=== PATIENT | male | born 1995 | race Caucasian/White ===

== ENCOUNTER 2018-02-27 10:03 | Outpatient (CLI) | payer MEDICAID, SELFPAY ==
--- NOTE | 2018-02-27 09:25 | DI.RAD_ITS ---
SYMPTOMS/DIAGNOSIS: COUGH, R05 CHEST X-RAY, PA AND LATERAL: Comparison is 10/07/16. The heart is normal in size. The lungs are clear. The mediastinal structures and pleura appear intact. IMPRESSION: Normal chest.
== END 2018-02-27 10:23 ==
PROVIDERS: PCP Family Medicine; Visit Provider Internal Medicine
DX: R05 Cough (principal)
CPT/HCPCS: 71046

== ENCOUNTER 2018-06-14 15:13 | Outpatient (CLI) | payer MEDICAID, SELFPAY ==
[2018-06-14 16:18] LABS: ALT 20 U/L (12-78); AST 15 U/L (15-37); Albumin 4.1 g/dL (3.4-5.0); Alkaline Phosphatase 111 U/L (46-116); Anion Gap 12.3 mmol/L (3-11); BUN 9 mg/dL (7-18); Bilirubin, Total 0.2 mg/dL (0.2-1.0); CO2 27.7 mmol/L (21.0-32.0); CREATININE 0.98 mg/dL (0.70-1.30); Calcium 10.5 mg/dL (8.5-10.1); Chloride 102 mmol/L (98-107); Glucose 109 mg/dL (70-100); Potassium 4.2 mmol/L (3.5-5.1); Sodium 142 mmol/L (136-145); Total Protein 7.6 g/dL (6.4-8.2)
== END 2018-06-14 15:33 ==
PROVIDERS: PCP Nurse Practitioner Family; Visit Provider Family Medicine
DX: K92.0 Hematemesis (principal)
CPT/HCPCS: 36415; 80053

== ENCOUNTER 2018-09-17 17:14 | Emergency (ER) | payer MEDICAID, SELFPAY ==
[2018-09-17 17:19] VITALS: BP 140/90; PULSE 90; RESP 16; TEMP 36.4; O2SAT 99
--- NOTE | 2018-09-17 17:52 | W.ED.GENAD ---
Discharge Plan Disposition Patient Disposition: HOME Condition: Good Discharge Details Chief Complaint: RespSymp Clinical Impression: Acute bronchitis, Sinus congestion Primary Care Provider: Unknown,Unknown ED Provider: Adriel Oakley Home Meds and New Rx's Prescriptions: New albuterol sulfate 90 mcg/actuation HFA aerosol inhaler 2 puff IH Q6H PRN (Reason: shortness of breath or wheezing) Qty: 8 RF: 0 fluticasone propionate 50 mcg/actuation spray,suspension 2 spray PEÑA DAILY Qty: 9.9 RF: 0 loratadine 10 mg capsule 10 mg PO DAILY Qty: 10 RF: 0 sodium chloride [Saline Mist] 0.65 % aerosol,spray 1 spray PEÑA Q1-4H PRN (Reason: nasal congestion) Qty: 30 RF: 0 No Action albuterol sulfate [Ventolin HFA] 90 mcg/actuation HFA aerosol inhaler 2 puff IH QID Qty: 18 RF: 1 baclofen 10 mg tablet 10 mg PO TID PRN (Reason: muscle spasm) Qty: 90 RF: 1 quetiapine [Seroquel] 100 mg tablet 100 mg PO 2@HS Qty: 60 RF: 3 clonazepam [Klonopin] 2 mg tablet 2 mg PO BID Qty: 60 RF: 0 dextroamphetamine-amphetamine [Adderall] 10 mg tablet 10 mg PO DAILY MDD 1 Qty: 30 RF: 0 dextroamphetamine-amphetamine 20 mg capsule,extended release 24hr 20 mg PO DAILY MDD 1 Qty: 30 RF: 0 dicyclomine 10 mg capsule 10 mg PO TID Qty: 30 RF: 2 Discharge Instructions Instructions: Sinusitis (ED), Acute Bronchitis (ED) Additional Instructions: Please stop smoking. Please take the nasal spray as directed. Please use a nasal rinse and inhaler as directed. If you notice any worsening of your symptoms, or any new symptoms such as vomiting, diarrhea, fever, chills, shortness of breath, chest pain, numbness, weakness, or fainting , please return immediately to the emergency department for reevaluation. Please follow up with your primary care provider as soon as possible for reassessment and reevaluation. As always, it was a pleasure participating in your medical care today. Discharge Data Discharge Date/Time-TO BE ENTERED AT DEPARTURE: 09/17/18 18:15 Medical Decision Making This is a pleasant 22-year-old male who presents for 4 days of congestion as well as a mild cough. He has no associated fever. Lung sounds are notably clear, vital signs are notably reassuring with no hypoxemia, tachypnea, tachycardia or fever. Portable limited bedside ultrasound demonstrates no evidence of B-lines, no evidence of significant infiltrate. The patient does have notable frontal nasal congestion. I feel signs and symptoms are clinically consistent with mild URI and sinusitis. No clinical evidence of severe pneumonia. We will start the patient on Flonase, sinus rinses, recommend close follow-up. We will also give the patient an inhaler with spacer here. I have extensively reviewed the treatment plan and discharge instructions with the patient. I have addressed all patient concerns at this time. The patient was made aware of what symptoms to monitor for that would warrant a return to the emergency department. Discussed the plan with the patient, they demonstrate verbal understanding and agreement with our assessment and plan at this time. HPI General Date/Time Provider Initiated Documentation: 09/17/18 17:27. HPI Narrative: This is a 22-year-old male with no significant past medical history except for notable tobacco and marijuana use, who presents today for evaluation of cough for the last 4 days. He has mild associated frontal congestion as well with a runny nose. He denies any significant sore throat. He denies any hemoptysis. Cough is productive with yellow and green sputum. He denies any fever or chills, energy level is normal. He denies any vomiting, but does admit to occasional loose stool. He denies any recent pneumonia but does admit to multiple other sick contacts. He has no other complaints, he denies any other modifying factors. Of note he has been using his girlfriends albuterol and this has been improving his symptoms. He has not been on any antibiotics recently. Related Data Home Medications Medication Instructions Recorded Confirmed dicyclomine 10 mg capsule 10 mg PO TID #30 cap 02/01/18 09/17/18 albuterol sulfate HFA 90 2 puff IH QID #18 gm 02/27/18 09/17/18 mcg/actuation aerosol inhaler baclofen 10 mg tablet 10 mg PO TID PRN #90 tab 06/11/18 09/17/18 quetiapine 100 mg tablet 100 mg PO 2@HS #60 tab-cap 07/29/18 09/17/18 clonazepam 2 mg tablet 2 mg PO BID #60 tab 08/30/18 09/17/18 dextroamphetamine-amphetamine 10 10 mg PO DAILY #30 tab MDD 1 08/30/18 09/17/18 mg tablet dextroamphetamine-amphetamine ER 20 mg PO DAILY #30 cap MDD 1 08/30/18 09/17/18 20 mg 24hr capsule,extend release albuterol sulfate 2 puff IH Q6H PRN #8 gm 09/17/18 fluticasone propionate 2 spray PEÑA DAILY #9.9 gm 09/17/18 loratadine 10 mg PO DAILY #10 cap 09/17/18 sodium chloride [Saline Mist] 1 spray PEÑA Q1-4H PRN #30 ml 09/17/18 Previous Rx's Medication Instructions Recorded dicyclomine 10 mg capsule 10 mg PO TID #30 cap 02/01/18 albuterol sulfate HFA 90 2 puff IH QID #18 gm 02/27/18 mcg/actuation aerosol inhaler baclofen 10 mg tablet 10 mg PO TID PRN #90 tab 06/11/18 quetiapine 100 mg tablet 100 mg PO 2@HS #60 tab-cap 07/29/18 clonazepam 2 mg tablet 2 mg PO BID #60 tab 08/30/18 dextroamphetamine-amphetamine 10 10 mg PO DAILY #30 tab MDD 1 08/30/18 mg tablet dextroamphetamine-amphetamine ER 20 mg PO DAILY #30 cap MDD 1 08/30/18 20 mg 24hr capsule,extend release albuterol sulfate 2 puff IH Q6H PRN #8 gm 09/17/18 fluticasone propionate 2 spray PEÑA DAILY #9.9 gm 09/17/18 loratadine 10 mg PO DAILY #10 cap 09/17/18 sodium chloride [Saline Mist] 1 spray PEÑA Q1-4H PRN #30 ml 09/17/18 Allergies Allergy/AdvReac Type Severity Reaction Status Date / Time No Known Allergies Allergy Verified 09/17/18 17:23 General Stated Complaint: RespSymp MARTHA: 4 Review of Systems Review of Systems All systems reviewed & are unremarkable except as noted in HPI and below PFSH Family History Mother Substance abuse Depression Asthma Father Substance abuse Maternal Grandfather Depression Neoplasm Asthma Paternal Grandfather Neoplasm Maternal Grandmother Dystonia Depression Stroke Asthma Paternal Grandmother Depression Asthma FAMILY HISTORY Heart disease MS (multiple sclerosis) Social History Smoking/Tobacco Use Status: Current every day Tobacco Type: cigarettes Alcohol Intake: current Alcohol Intake frequency: 3 or more drinks per day Drug use: Daily Substance use type: marijuana Duration: 45-60 minutes/day Frequency: 1-2 times per week Joseline/Jehovah'S Witness: No preference Special joseline needs: No Do you feel safe at home: Yes Do you feel safe in your relationship?: Yes Exam Narrative Exam Narrative: 1.Const: Well-nourished, Well-developed, appearing stated age 2.Eyes: PERRL, no conjunctival injection, and symmetrical lids. 3.ENT: Atraumatic external nose and ears. Moist MM. Neck: Symmetric, trachea midline, No thyromegaly. 4.CVS: +S1/S2, No murmurs or gallops. Peripheral pulses 2+ and equal in all extremities. Brisk capillary refill in all extremities. 5.RESP: Unlabored respiratory effort. Clear to auscultation bilaterally. No wheezes rales or rhonchi, limited bedside ultrasound demonstrates no evidence of B-lines, or significant infiltrate. 6.GI: Soft, Nontender/Nondistended, No hepatosplenomegaly. No guarding or rebound. 7.MSK: Normocephalic/Atraumatic, Extremities w/o deformity or ttp No cyanosis or clubbing, Normal movement of all extremities 8.Skin: Warm, Dry. No rashes or lesions. 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 Sensation grossly intact, no focal neurologic deficits. 10.Psych: (AAO) x3. Appropriate mood and affect Course Vital Signs Temperature 36.4 C L 09/17/18 17:19 Pulse 90 09/17/18 17:19 Respiratory Rate 16 09/17/18 17:19 Blood Pressure 140/90 09/17/18 17:19 Pulse Oximetry 99 09/17/18 17:19 Temperature 36.4 C L 09/17/18 17:19 Temperature Source Temporal Artery Scan 09/17/18 17:19 Pulse 90 09/17/18 17:19 Respiratory Rate 16 09/17/18 17:19 Respiratory Effort Non-Labored 09/17/18 17:25 Respiratory Depth Normal 09/17/18 17:25 Blood Pressure 140/90 04/30/19 17:19 Blood Pressure Position Sitting 09/17/18 17:19 Pulse Oximetry 99 09/17/18 17:19 Oxygen Delivery Method Room Air 09/17/18 17:19 Oxygen Flow Rate 0 09/17/18 17:19
[2018-09-17] MEDS: Albuterol HFA 8 GM 60 PUFF INH IH (18:05)
[2018-09-17] MEDS: Inhaler, Assist Device 1 EACH MC (18:06)
--- NOTE | 2018-09-17 18:16 | RESPIRATORY ---
09/17/18-Went over MDI and spacer EdU with Pt. Pt was able to reproduce with great breath hold technique .
== END 2018-09-17 18:15 | disposition home or self-care (01) ==
PROVIDERS: Emergency Provider Student in an Organized Health Care Education/Training Program
DX: J20.9 Acute bronchitis, unspecified (principal); R09.81 Nasal congestion; F17.210 Nicotine dependence, cigarettes, uncomplicated
CPT/HCPCS: 99284

== ENCOUNTER 2019-06-04 15:17 | Outpatient (REF) | payer MEDICAID, SELFPAY ==
[2019-06-06 12:59] LABS: Chlamydia Result Negative (Negative); GC Result Negative (Negative)
== END 2019-06-04 15:37 ==
LOC: LBN 15:17
PROVIDERS: PCP Family Medicine; Visit Provider Nurse Practitioner Family
DX: J02.9 Acute pharyngitis, unspecified (principal); Z11.3 Encounter for screening for infections with a predominantly sexual mode of transmission
CPT/HCPCS: 87491; 87591; 87070

== ENCOUNTER 2021-03-24 21:37 | Outpatient (REF) | payer MEDICAID, SELFPAY ==
[2021-03-24 20:01] LABS: Abs Immature Grans 0.05 10^3/uL (0.0-0.06); Absolute Lymphocyte Count 1.68 10^3/uL (1.2-3.4); Absolute Monocyte Count 1.12 10^3/uL (0.1-0.8); Absolute Neutrophil Count 5.93 10^3/uL (1.2-6.7); Basophils % 1.1; Eosinophils % 4.3; HGB 18.4 g/dL (13.5-17.5); Immature Grans % 0.5; Lymphocytes % 18.1; MCH 35.7 pg (27.0-33.0); MCHC 34.1 % (32.0-36.0); MCV 104.7 fL (80-95); MPV 10.7 fL (8.0-11.0); Monocytes % 12.1; Neutrophils % 63.9; Nucleated RBC 0 %; Platelet Count 456 10^3/uL (130-400); RBC 5.16 10^6/uL (4.36-5.78); RDW 15.2 % (11.8-14.1); RDW-SD 59.7 fL; WBC 9.28 10^3/uL (4.4-10.8)
[2021-03-24 20:29] LABS: ALT 57 U/L (16-63); AST 43 U/L (15-37); Albumin 3.9 g/dL (3.4-5.0); Alkaline Phosphatase 115 U/L (46-116); Anion Gap 11.1 mmol/L (3-11); BUN 5 mg/dL (7-18); Bilirubin, Total 0.5 mg/dL (0.2-1.0); CO2 30.9 mmol/L (21.0-32.0); CREATININE 0.8 mg/dL (0.70-1.30); Calcium 10.2 mg/dL (8.5-10.1); Calculated LDL 91 mg/dL (<100); Chloride 101 mmol/L (98-107); Cholesterol 160 mg/dL (<200); Glucose 88 mg/dL (74-106); HDL Cholesterol 49 mg/dL (40-60); Sodium 143 mmol/L (136-145); TSH (W/Ref FT4) 3.63 uIU/mL (0.36-3.74); Total Protein 7.1 g/dL (6.4-8.2); Triglyceride 104 mg/dL (<150)
== END 2021-03-24 21:38 | disposition home or self-care (01) ==
LOC: NCHCN 21:37
PROVIDERS: PCP Family Medicine; Visit Provider Family Medicine
DX: I10 Essential (primary) hypertension (principal); F10.10 Alcohol abuse, uncomplicated; Z00.00 Encounter for general adult medical examination without abnormal findings
CPT/HCPCS: 80053; 80061; 84443; 85025

== ENCOUNTER 2021-05-15 14:52 | Emergency (ER) | payer MEDICAID, SELFPAY ==
[2021-05-15 14:55] VITALS: BP 151/112; PULSE 92; RESP 16; TEMP 36.6; O2SAT 97
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
[2021-05-15 15:36] LABS: Abs Immature Grans 0.08 10^3/uL (0.0-0.06); Absolute Eosinophil Count 0.38 10^3/uL (0.0-0.7); Absolute Monocyte Count 1.37 10^3/uL (0.1-0.8); Absolute Neutrophil Count 9.85 10^3/uL (1.2-6.7); Basophils % 0.7; Eosinophils % 2.8; HCT 53.1 % (40.0-50.0); HGB 18.6 g/dL (13.5-17.5); Immature Grans % 0.6; Lymphocytes % 13.9; MCH 35.7 pg (27.0-33.0); MCV 101.9 fL (80-95); MPV 10.1 fL (8.0-11.0); Nucleated RBC 0 %; Platelet Count 434 10^3/uL (130-400); RBC 5.21 10^6/uL (4.36-5.78); RDW 12.9 % (11.8-14.1); RDW-SD 49.4 fL; WBC 13.68 10^3/uL (4.4-10.8)
[2021-05-15 15:50] LABS: ALT 65 U/L (16-63); AST 55 U/L (15-37); Albumin 4.1 g/dL (3.4-5.0); Alkaline Phosphatase 104 U/L (46-116); Anion Gap 7.9 mmol/L (3-11); BUN 9 mg/dL (7-18); Bilirubin, Total 0.6 mg/dL (0.2-1.0); CO2 30.1 mmol/L (21.0-32.0); CREATININE 0.8 mg/dL (0.70-1.30); Calcium 9.3 mg/dL (8.5-10.1); Chloride 101 mmol/L (98-107); Glucose 98 mg/dL (74-106); Sodium 139 mmol/L (136-145); Total Protein 7.7 g/dL (6.4-8.2)
[2021-05-15 15:52] LABS: PTT Activated 25.5 sec (21.0-27.5)
[2021-05-15 15:57] LABS: Lipase 21 U/L (73-393)
[2021-05-15 16:00] LABS: INR 1.1 (0.9-1.1); Prothrombin Time 11.1 sec (9.3-11.0)
[2021-05-15 16:21] VITALS: BP 145/68; PULSE 68; RESP 14; O2SAT 98
== END 2021-05-15 16:20 | disposition home or self-care (01) ==
PROVIDERS: Emergency Provider Nurse Practitioner Family; PCP Family Medicine
DX: K25.3 Acute gastric ulcer without hemorrhage or perforation (principal); F10.10 Alcohol abuse, uncomplicated; I10 Essential (primary) hypertension
CPT/HCPCS: 36415; 80053; 83690; 99283; 85025; 85610; 85730

== ENCOUNTER 2024-01-06 16:16 | Inpatient (IN) | payer MEDICAID, SELFPAY ==
[2024-01-06] VITALS (34 sets, daily range): BP systolic 171–214; BP diastolic 123–150; PULSE 73–108; RESP 11–21; TEMP 36.1–36.8; O2SAT 90–99
--- NOTE | 2024-01-06 16:45 | DI.CT_ITS ---
Exam(s) CT RENAL COLIC WO EXAM: CT RENAL COLIC WO CLINICAL HISTORY: right flank pain. TECHNIQUE: Imaging Protocol: Axial computed tomography images with coronal and sagittal reformatted images were created and reviewed. CONTRAST MATERIAL: Noncontrast COMPARISON: US ABDOMEN ULTRASOUND (P) from 07/29/2014 FINDINGS: ABDOMEN: Lung Bases: Normal where visualized. Liver: Severe hepatic steatosis. No measurable mass. Gallbladder and biliary tract: Contracted. No radiodense calculus or dilation. Pancreas: Normal density, no calcifications. Mild amount of inflammation in the head. Spleen: Normal. Kidneys: Normal size, contour and axis. No radiodense stones or obstructive uropathy. No masses seen. Adrenal glands: No masses seen. Abdominal Aorta: Abdominal portion non-dilated. Soft tissues: Unremarkable. PELVIS: Bladder: Symmetric distention, no gross wall thickening. No evidence of stones.No visible mass. Bowel: No obstruction or bowel wall thickening. Mild inflammation of the duodenum adjacent to the pa ncreatic head. Appendix normal. Colon decompressed. Fatty infiltration into the wall of the colo n could be related to diet and body habitus. Reproductive: Unremarkable. Peritoneal cavity: No ascites, collection or mesenteric inflammatory response. Bones: Unremarkable for age.. IMPRESSION: Findings consistent with mild pancreatitis involving the pancreatic head.. Severe hepatic steatosis. No visible gallstones or biliary dilatation. RADIATION DOSE DELIVERED: Total DLP DATA REPOSITORY: All CT scans at this facility are submitted to the National Radiology Data Registry (NRDR) Dose Index Registry (DIR) with the [employer] (A[employer]). RADIATION OPTIMIZATION: All CT scans at this facility use at least one of these dose optimization te chniques: automated exposure control; mA and/or kV adjustment per patient size (includes targeted exa ms where dose is matched to clinical indication); or iterative reconstruction.
[2024-01-06 17:11] LABS: Abs Immature Grans 0.08 10^3/uL (0.0-0.06); Absolute Basophil Count 0.11 10^3/uL (0.0-0.2); Absolute Eosinophil Count 0.25 10^3/uL (0.0-0.7); Absolute Neutrophil Count 10.31 10^3/uL (1.2-6.7); Basophils % 0.8 %; Eosinophils % 1.8 %; HCT 45.1 % (40.0-50.0); HGB 16.1 g/dL (13.5-17.5); Immature Grans % 0.6 %; Lymphocytes % 12.4 %; MCH 37.2 pg (27.0-33.0); MCHC 35.7 % (32.0-36.0); MCV 104 fL (80-95); MPV 9.5 fL (8.0-11.0); Monocytes % 9.1 %; Neutrophils % 75.3 %; Platelet Count 500 10^3/uL (130-400); RBC 4.33 10^6/uL (4.36-5.78); RDW 12.5 % (11.8-14.1); RDW-SD 48.6 fL; WBC 13.69 10^3/uL (4.4-10.8)
[2024-01-06 17:15] LABS: Absolute Monocyte Count 1.25 10^3/uL (0.1-0.8)
[2024-01-06 17:26] LABS: ALT 68 U/L (16-63); AST 84 U/L (15-37); Albumin 3.7 g/dL (3.4-5.0); Alkaline Phosphatase 103 U/L (46-116); Anion Gap 7.9 mmol/L (3-11); BUN 11 mg/dL (7-18); Bilirubin, Total 0.85 mg/dL (0.2-1.0); CO2 37.1 mmol/L (21.0-32.0); CREATININE 1.4 mg/dL (0.70-1.30); Chloride 100 mmol/L (98-107); Estimated GFR 71.09 (mL/min/1.73m2); Glucose 106 mg/dL (74-106); Magnesium 1.1 mg/dL (1.8-2.4); Potassium 3.5 mmol/L (3.5-5.1); Sodium 145 mmol/L (136-145); Total Protein 7.1 g/dL (6.4-8.2)
[2024-01-06 17:27] LABS: Calcium 12.4 mg/dL (8.5-10.1)
[2024-01-06] MEDS: Ketorolac 15 MG/ML VIAL IVP (17:32)
[2024-01-06] MEDS: Normal Saline 1,000 ML 1000 ML IV (17:33)
[2024-01-06] MEDS: Ondansetron 4 MG/2 ML VIAL IVP (17:34)
--- NOTE | 2024-01-06 18:24 | DI.VRAD_ITS ---
PROCEDURE INFORMATION: Exam: CT Abdomen And Pelvis Without Contrast Exam date and time: 01/06/2024 5:12 PM Age: 28 years old Clinical indication: Other: Right flank pain TECHNIQUE: Imaging protocol: Computed tomography of the abdomen and pelvis without contrast. COMPARISON: CR XR CHEST 2V PA LATERAL 02/27/2018 9:20 AM FINDINGS: Esophagus: There may be some mild wall thickening of the distal esophagus. Liver: Fatty, enlarged liver. Gallbladder and biliary ducts: Gallbladder contracted. Pancreas: There is some mild peripancreatic and Maria M duodenal inflammatory change. Spleen: Normal. No splenomegaly. Adrenal glands: Normal. No mass. Kidneys and ureters: Normal. No hydronephrosis. Stomach and bowel: Fatty submucosal infiltration noted in the colon, uncertain chronicity. Appendix: No evidence of appendicitis. Intraperitoneal space: Unremarkable. No free air. No significant fluid collection. Vasculature: Unremarkable. No abdominal aortic aneurysm. Lymph nodes: Unremarkable. No enlarged lymph nodes. Urinary bladder: The bladder is not well distended. Reproductive: Unremarkable as visualized. Bones/joints: Unremarkable. No acute fracture. Soft tissues: Unremarkable. IMPRESSION: Probable pancreatitis versus duodenitis, considered less likely. No drainable collection identified. Clinical and laboratory correlation recommended. Dictated and Authenticated by: Gabriela Inman MD. Ordering:NATALIE Dyer MD
[2024-01-06 18:50] LABS: Lipase 134 U/L (16-77)
[2024-01-06] MEDS: MAGNESIUM SULFATE 4 GM/100 ML BAG IVINF (18:52)
[2024-01-06 19:30] LABS: Bilirubin Negative (Negative); Blood Negative (Negative); Clarity Clear (Clear); Glucose Negative (Negative); Ketones Negative (Negative); Leukocyte Esterase Trace (Negative); Nitrite Negative (Negative); Urobilinogen 0.2 mg/dL (Up to 0.2)
[2024-01-06 19:36] LABS: Bacteria Negative HPF (Negative); C & S Indicated? Yes; Crystals Negative HPF (Negative); Epithelial Cells Rare HPF (Negative); Mucus Moderate (Negative); Other Cells Rare Transitional (Negative); RBC 0-2 HPF (0-2)
[2024-01-06] MEDS: cefTRIAXone 1 GM/50 ML BAG IVPB (20:57)
[2024-01-06] MEDS: HYDROmorphone 2 MG/ML SYR 1 MG IVP (20:57)
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
--- NOTE | 2024-01-06 21:15 | RT.EKG_ITS ---
APPROVED REPORT Exam: Resting ECG Reason for Exam: Abnormal electrolytes Patient Location: E HR:83 bpm ECG Measurements Heart Rate 83 AXIS RI 145 P 24 QRSd 91 QRS -4 QT 406 T 48 QTc 477 Conclusion Sinus rhythm Rate 83 No STEMI
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
[2024-01-06 23:24] LABS: *AMPHETAMINES SCREEN URINE Negative (Negative); *BARBITURATES SCREEN URINE Negative (Negative); *BENZODIAZEPINES SCREEN URINE Negative (Negative); Cannabinoids THC Positive (Negative); Cocaine Screen,Urine Negative (Negative); METHADONE URINE SCREEN Negative (Negative); OPIATES URINE SCREEN Negative (Negative)
[2024-01-06 23:27] LABS: Tricyclic Antidepressants Negative (Negative)
[2024-01-06] MEDS: Sucralfate 1 GM TAB PO (23:45)
[2024-01-06] MEDS: Pantoprazole 40 MG VIAL IVP (23:45)
[2024-01-06] MEDS: Normal Saline Flush 10 ML SYR IVP (23:46)
[2024-01-06] MEDS: Enoxaparin 40 MG/0.4 ML SYR SC (23:46)
[2024-01-06] MEDS: Lactated Ringers 1,000 ML 150 ML IV (23:47)
[2024-01-07] VITALS (23 sets, daily range): BP systolic 162–194; BP diastolic 112–150; PULSE 75–108; RESP 14–20; TEMP 36.3–37; O2SAT 74–99
[2024-01-07] MEDS: HYDROmorphone 2 MG/ML SYR 0.5 MG IVP ×3 (00:29→08:58)
[2024-01-07] MEDS: Normal Saline Flush 10 ML SYR IVP ×7 (00:30→22:43)
[2024-01-07] MEDS: amLODIPine 10 MG TAB PO (01:26)
[2024-01-07] MEDS: Metoprolol 5 MG/5 ML VIAL IVP ×4 (01:26→20:13)
--- NOTE | 2024-01-07 03:01 | W.PC.ACHO ---
Registration Status: Primary Language: Preferred Language: ED Information & Data Chief Complaint Abd Prob 01/06/24 21:18 Triage Note 8 of 10 persistent pain in 01/06/24 16:28 upper and lower abd. started as back pain 3 days ago, moved to abd today. nausea, vomiting and constipation. Medical / Surgical History (Last Reviewed 01/07/24 @ 00:22 by Aldo Escobar) Gastroesophageal reflux disease (02/02/14) Chronic post-traumatic stress disorder (08/21/13) Back pain (12/10/14) Most Recent Vital Signs Temperature 37.0 C 01/07/24 01:25 Temperature Source Temporal Artery Scan 01/07/24 01:25 Pulse 84 01/07/24 02:47 Pulse Rhythm Regular 01/06/24 23:04 Pulse 73 01/06/24 17:00 Respiratory Rate 16 01/07/24 02:47 Respiratory Effort Normal, Non-Labored 01/06/24 23:04 Respiratory Depth Shallow 01/06/24 23:04 Respiratory Pattern Irregular 01/06/24 23:04 Blood Pressure 172/122 H 01/07/24 02:47 Blood Pressure Mean 151 01/06/24 22:01 Blood Pressure Position Sitting 01/06/24 16:31 Pulse Oximetry 91 L 01/07/24 02:47 Oxygen Delivery Method Room Air 01/07/24 02:47 Oxygen Flow Rate 0 01/07/24 02:47 Pain Level 5 01/07/24 01:25 Allergies No Known Allergies Allergy (Verified 01/06/24 16:42) Active Medications Generic Name Dose Route Start Last Admin Trade Name Freq PRN Reason Stop Dose Admin Enoxaparin Sodium 40 mg 01/07/24 00:00 01/06/24 23:46 Enoxaparin 40 Mg/0.4 Ml Syr SC 40 mg Q24H CAM Administration Hydromorphone HCl 0.5 mg 01/06/24 21:38 01/07/24 00:29 Hydromorphone 2 Mg/Ml Syr IVP 0.5 mg Q2H PRN PRN Administration Ringer's Solution 1,000 mls @ 150 mls/hr 01/06/24 21:45 01/06/24 23:47 IV 150 mls/hr INFUSION CAM Administration Metoprolol Tartrate 5 mg 01/07/24 01:04 01/07/24 01:26 Metoprolol 5 Mg/5 Ml Vial IVP 5 mg Q2H PRN PRN Administration Pantoprazole Sodium 40 mg 01/07/24 00:00 01/06/24 23:45 Pantoprazole 40 Mg Vial IVP 40 mg Q24H CAM Administration Sodium Chloride 0 ml 01/06/24 16:51 01/07/24 01:27 Normal Saline Flush 10 Ml Syr IVP 10 ml PRN PRN Administration Sodium Chloride 0 ml 01/06/24 20:00 01/06/24 23:46 Normal Saline Flush 10 Ml Syr IVP 10 ml BID CAM Administration IV IV Catheter Type [Left Peripheral IV Antecubital] IV Catheter Gauge [Left 20 Antecubital] Diet Orders Category Date Time Status Nothing Per Oral [DIET] Nutrition 01/07/24 Breakfast Active Diagnostics 01/07/24 01/06/24 01/06/24 Range/Units 05:35 19:20 17:03 WBC Pending 13.69 H (4.4-10.8) 10^3/uL RBC Pending 4.33 L (4.36-5.78) 10^6/uL Hgb Pending 16.1 (13.5-17.5) g/dL Hct Pending 45.1 (40.0-50.0) % MCV Pending 104 H (80-95) fL MCH Pending 37.2 H (27.0-33.0) pg MCHC Pending 35.7 (32.0-36.0) % RDW Pending 12.5 (11.8-14.1) % Plt Count Pending 500 H (130-400) 10^3/uL MPV Pending 9.5 (8.0-11.0) fL Immature Gran % 0.6 % Neutrophils % 75.3 % Lymphocytes % 12.4 % Monocytes % 9.1 % Eosinophils % 1.8 % Basophils % 0.8 % Nucleated RBC % 0.0 (0.0-0.3) % Absolute Neutrophils 10.31 H (1.2-6.7) 10^3/uL Absolute Lymphocytes 1.70 (1.2-3.4) 10^3/uL Absolute Monocytes 1.25 H (0.1-0.8) 10^3/uL Absolute Eosinophils 0.25 (0.0-0.7) 10^3/uL Absolute Basophils 0.11 (0.0-0.2) 10^3/uL PT Pending INR Pending Sodium Pending 145 (136-145) mmol/L Potassium Pending 3.5 (3.5-5.1) mmol/L Chloride Pending 100 (98-107) mmol/L Carbon Dioxide Pending 37.1 H (21.0-32.0) mmol/L Anion Gap Pending 7.9 (3-11) mmol/L BUN Pending 11 (7-18) mg/dL Creatinine Pending 1.4 H (0.70-1.30) mg/dL Est GFR (CKD-EPI 2020) Pending 71.09 (mL/min/1.73m2) Glucose Pending 106 (74-106) mg/dL Calcium Pending 12.4 H* (8.5-10.1) mg/dL Magnesium Pending 1.1 L (1.8-2.4) mg/dL Total Bilirubin Pending 0.85 (0.2-1.0) mg/dL Conjugated Bilirubin Pending AST Pending 84 H (15-37) U/L ALT Pending 68 H (16-63) U/L Alkaline Phosphatase Pending 103 (46-116) U/L Total Protein Pending 7.1 (6.4-8.2) g/dL Albumin Pending 3.7 (3.4-5.0) g/dL Triglycerides Pending Total Cholesterol Pending LDL Cholesterol, Calc Pending HDL Cholesterol Pending Lipase 134 H (16-77) U/L Urine Color Yellow (Yellow) Urine Clarity Clear (Clear) Urine pH 8.0 (5-8) Ur Specific [place] 1.020 (1.005-1.025) Urine Protein Trace (Neg-Trace) mg/dL Urine Ketones Negative (Negative) mg/dL Urine Blood Negative (Negative) Urine Nitrite Negative (Negative) Urine Bilirubin Negative (Negative) Urine Urobilinogen 0.2 (Up to 0.2) mg/dL Ur Leukocyte Esterase Trace H (Negative) Urine RBC 0-2 (0-2) HPF Urine WBC 10-20 H (0-5) HPF Ur Epithelial Cells Rare (Negative) HPF Urine Crystals Negative (Negative) HPF Urine Bacteria Negative (Negative) HPF Urine Mucus Moderate (Negative) Urine Other Rare Transitional (Negative) Ur Culture Indicated? Yes Urine Glucose Negative (Negative) mg/dL Urine Opiates Screen Negative (Negative) Urine Methadone Screen Negative (Negative) Ur Barbiturates Screen Negative (Negative) Ur Tricyclics Screen Negative (Negative) Ur Amphetamines Screen Negative (Negative) U Benzodiazepines Scrn Negative (Negative) Urine Cocaine Screen Negative (Negative) Ur THC Screen Positive A (Negative) 01/06/24 19:20 Urine Culture - Pending Urine - Reflex from Ua Intake and Output - 24 Hour Total 01/06/24 16:16 thru 01/06/24 23:45 Intake Total 1150 Balance 1150 Weight 113.398 kg Intake: IV 1150 Other: Voiding Methods Toilet Falls Risk Assessment History of Falls Previous History 01/06/24 23:04 Contributing Factors Impairments 01/06/24 23:04 Ambulatory Aids Independent 01/06/24 23:04 Tubes/Lines With any additional score 01/06/24 23:04 Gait Evaluation No gait disturbance 01/06/24 23:04 Cognition No cognitive impairment 01/06/24 23:04 Fall Total Score 38 01/06/24 23:04 Level of Risk Moderate Risk 01/06/24 23:04 Problems (Last Reviewed 01/07/24 @ 00:22 by Aldo Escobar) TOMI (acute kidney injury) (Acute) UTI (urinary tract infection) (Acute) Hypercalcemia (Chronic) Hypomagnesemia (Acute) Pancreatitis, acute (Acute) Alcohol abuse (Chronic) HTN (hypertension) (Chronic) Severe depression (Chronic 08/21/13) v v v v v v v v v Sending and/or Receiving Nurses: Please use comment section below to note any information pertinent to the patient hand-off not included above. Information / Comments: 3 day hx of low back and abdominal pain rated 8/10 Nausea & vomiting this morning Imaging positive for pancreatitis Significant history of ETOH use Hypertensive to SBP of 180s, confirmed manually Hypomagnesemia, hypercalcemia Pt received rocephin, dilaudid, toradol, zofran Report received from: Erik Amaya @ [id number] on 01/06/24
[2024-01-07] MEDS: Lactated Ringers 1,000 ML 150 ML IV ×2 (06:07→15:49)
[2024-01-07 07:25] LABS: HCT 40.7 % (40.0-50.0); HGB 14.5 g/dL (13.5-17.5); MCH 37.4 pg (27.0-33.0); MCHC 35.6 % (32.0-36.0); MCV 105 fL (80-95); MPV 10.1 fL (8.0-11.0); Platelet Count 467 10^3/uL (130-400); RBC 3.88 10^6/uL (4.36-5.78); RDW 12.9 % (11.8-14.1); RDW-SD 49.8 fL; WBC 14.32 10^3/uL (4.4-10.8)
[2024-01-07 07:31] LABS: Prothrombin Time 10.3 sec (9.1-11.1)
[2024-01-07 07:50] LABS: ALT 55 U/L (16-63); AST 58 U/L (15-37); Albumin 3.1 g/dL (3.4-5.0); Alkaline Phosphatase 100 U/L (46-116); Anion Gap 5.4 mmol/L (3-11); BUN 15 mg/dL (7-18); Bilirubin, Total 1.24 mg/dL (0.2-1.0); CO2 35.6 mmol/L (21.0-32.0); CREATININE 1.3 mg/dL (0.70-1.30); Calcium 10.5 mg/dL (8.5-10.1); Calculated LDL 53 mg/dL (<100); Chloride 103 mmol/L (98-107); Cholesterol 135 mg/dL (<200); Glucose 95 mg/dL (74-106); HDL Cholesterol 44 mg/dL (40-60); Magnesium 1.7 mg/dL (1.8-2.4); PHOSPHORUS 2.4 mg/dL (2.6-4.7); Sodium 144 mmol/L (136-145); Total Protein 5.9 g/dL (6.4-8.2); Triglyceride 190 mg/dL (<150)
[2024-01-07 07:59] LABS: Bilirubin, Direct 0.4 mg/dL (0.0-0.2)
--- NOTE | 2024-01-07 08:00 | DI.US_ITS ---
Exam(s) US ABDOMEN LIMITED EXAM: US ABDOMEN LIMITED CLINICAL HISTORY: Acute pancreatitis, potential gallbladder/CBD TECHNIQUE: Ultrasound abdomen performed using standard protocol. COMPARISON: CT CT RENAL COLIC WO from 01/06/2024 FINDINGS: LIVER: Enlarged at 19 cm in length. Severe hepatic steatosis. Portions of the liver are not visuali zed. No focal liver lesions are visible. GALLBLADDER: No evidence of cholelithiasis. No evidence of wall thickening. No pericholecystic fluid identified. NEWBERRY'S SIGN: Negative. BILIARY SYSTEM: No intrahepatic or extrahepatic biliary ductal dilation. KIDNEYS: Kidneys are symmetric in size. No evidence of renal calculi. No evidence of hydronephrosis. No renal mass or cyst identified. PANCREAS: Trace fluid posterior to the pancreatic head. Pancreas not well seen. SPLEEN: Not enlarged. ABDOMINAL AORTA AND IVC: Visualized portions normal caliber. ASCITES: Trace fluid posterior to the pancreatic head. IMPRESSION: Trace fluid posterior to pancreatic head. No evidence of gallstones, gallbladder wall thickening or biliary dilatation. Severe hepatic steatosis. DATA REPOSITORY:
[2024-01-07] MEDS: Multivitamin TAB 1 TAB PO (08:52)
[2024-01-07] MEDS: amLODIPine 5 MG TAB 10 MG PO (08:52)
[2024-01-07] MEDS: Folic Acid 1 MG TAB PO (08:52)
[2024-01-07] MEDS: Thiamine 100 MG TAB PO (08:53)
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
[2024-01-07] MEDS: LORazepam 1 MG TAB PO/SL ×2 (09:55→11:53)
--- NOTE | 2024-01-07 10:14 | W.PM.PROGNOT ---
Date of Service Date of service: 01/07/24 Time of Service: 10:14 Assessment and Plan Assessment and plan (1) Pancreatitis, acute: Start date: 01/06/24 Status: Acute Assessment and plan: Presentation and non-contrast CT c/w pancreatitis. Currently NPO on IV fluids. Lower dose 0.5mg hydromorphone not working, will increase and give one time 2mg with monitoring. He did have a more significant history of alcohol use in the past, denies recent binge. No biliary disease on non-contrast CT, abdominal u/s pending. There is a mild elevation of bili and AST/ALT Triglycerides normal. He hasn't been taking medicaitons that could cause this. Qualifiers: Pancreatitis type: alcohol induced Acute pancreatitis complication: no infection or necrosis Qualified Code(s): K85.20 - Alcohol induced acute pancreatitis without necrosis or infection (2) Hypercalcemia: Status: Chronic Assessment and plan: This has been noted in the past but more elevated at presentation, could be a cause of pancreatitis. Closer to normal this morning after hydration. PTH pending. Chest imaging not c/w sarcoid. Denies suppluments of calcium/vitamin D. PTH pending, further evaluation after these results. Continue to hydrate. (3) TOMI (acute kidney injury): Start date: 01/06/24 Status: Acute Assessment and plan: Patient did have an elevated creatinine on admission, likely pre-renal, only slight imrpovement this morning. He received a dose of ketoralac, will not continue this for now. Continue hydration, follow urine output. (4) UTI (urinary tract infection): Start date: 01/06/24 Status: Acute Assessment and plan: Essentially asymptomatic but mildly positive urine. Given ceftriaxone. I don't think this is a true UTI without symptoms so I am stopping antibiotics. Qualifiers: Urinary tract infection type: acute cystitis Hematuria presence: without hematuria Qualified Code(s): N30.00 - Acute cystitis without hematuria (5) Hypomagnesemia: Start date: 01/06/24 Status: Acute Assessment and plan: Acute and probably nutritional with patient's daily alcohol use. Replete again this morning. (6) Alcohol abuse: Status: Chronic Assessment and plan: Patient drinks beer after work and this is not interrupted his work or relationships. He does tend to drink daily. He has never had alcohol withdrawal. Monitor closely off CIWA protocol for now. Encourage cessation at least for a period of time. (7) HTN (hypertension): Status: Chronic Assessment and plan: High in pain, I don't think it makes sense to treat with IV therapy for BP. Continue amlodipine but this will take 2 weeks to reach steady state. Qualifiers: Hypertension type: primary hypertension Qualified Code(s): I10 - Essential (primary) hypertension (8) Severe depression: Status: Chronic Assessment and plan: Patient noncompliant with medical therapy and drinks daily possibly self treating. He also has a history of ADHD off therapy. Long-term he should follow-up with PCP for more appropriate medical, lifestyle, and behavioral therapies. no change today. Subjective Subjective Patient reports: voiding w/o difficulty; denies diarrhea or fever Interval history since last seen: Having severe pain. Given 0.5mg prn hydromorphone, didn't touch the pain. States in ED it did help (was 1mg). Pain constant band-like across epigastrum to the back, also feels it to the rest of his abdomen and into the chest. He hasn't eaten. A/w some nausea, hasn't vomited. Last BM yesterday slightly loose. Hurts to breath deeply so he feels some SOB. Exam Narrative Exam Narrative: Alert and oriented, but uncomfortable holding epigastrum in bed, writhing at times. HEENT: conj clear, no icterus, MMM LUNGs: normal effort, clear anteriorly and laterally to ascultation CV: RRR, no murmurs ABD: hypoactive BS, soft, diffusely tender more in epigastrum ext: non tender, no edema. Objective Last Vital Signs Temp 36.8 C 01/07/24 08:13 Pulse 85 01/07/24 08:13 Resp 17 01/07/24 08:13 BP 167/117 H 01/07/24 08:13 Pulse Ox 92 01/07/24 08:13 Laboratory Results - last 24 hr 01/06/24 01/06/24 01/07/24 17:03 19:20 06:25 WBC 13.69 H 14.32 H RBC 4.33 L 3.88 L Hgb 16.1 14.5 Hct 45.1 40.7 MCV 104 H 105 H MCH 37.2 H 37.4 H MCHC 35.7 35.6 RDW 12.5 12.9 Plt Count 500 H 467 H MPV 9.5 10.1 Immature Gran % 0.6 Neutrophils % 75.3 Lymphocytes % 12.4 Monocytes % 9.1 Eosinophils % 1.8 Basophils % 0.8 Nucleated RBC % 0.0 Absolute Neutrophils 10.31 H Absolute Lymphocytes 1.70 Absolute Monocytes 1.25 H Absolute Eosinophils 0.25 Absolute Basophils 0.11 PT 10.3 INR 1.0 Sodium 145 144 Potassium 3.5 3.0 L Chloride 100 103 Carbon Dioxide 37.1 H 35.6 H Anion Gap 7.9 5.4 BUN 11 15 Creatinine 1.4 H 1.3 Est GFR (CKD-EPI 2020) 71.09 77.70 Glucose 106 95 Calcium 12.4 H* 10.5 H Phosphorus 2.4 L Magnesium 1.1 L 1.7 L Total Bilirubin 0.85 1.24 H Conjugated Bilirubin AST 84 H ALT 68 H Alkaline Phosphatase 103 Total Protein 7.1 Albumin 3.7 Triglycerides Total Cholesterol LDL Cholesterol, Calc HDL Cholesterol Lipase 134 H Urine Color Yellow Urine Clarity Clear Urine pH 8.0 Ur Specific [place] 1.020 Urine Protein Trace Urine Ketones Negative Urine Blood Negative Urine Nitrite Negative Urine Bilirubin Negative Urine Urobilinogen 0.2 Ur Leukocyte Esterase Trace H Urine RBC 0-2 Urine WBC 10-20 H Ur Epithelial Cells Rare Urine Crystals Negative Urine Bacteria Negative Urine Mucus Moderate Urine Other Rare Transitional Ur Culture Indicated? Yes Urine Glucose Negative Urine Opiates Screen Negative Urine Methadone Screen Negative Ur Barbiturates Screen Negative Ur Tricyclics Screen Negative Ur Amphetamines Screen Negative U Benzodiazepines Scrn Negative Urine Cocaine Screen Negative Ur THC Screen Positive A 01/07/24 01/07/24 01/07/24 06:25 06:25 06:25 WBC RBC Hgb Hct MCV MCH MCHC RDW Plt Count MPV Immature Gran % Neutrophils % Lymphocytes % Monocytes % Eosinophils % Basophils % Nucleated RBC % Absolute Neutrophils Absolute Lymphocytes Absolute Monocytes Absolute Eosinophils Absolute Basophils PT INR Sodium Potassium Chloride Carbon Dioxide Anion Gap BUN Creatinine Est GFR (CKD-EPI 2020) Glucose Calcium Phosphorus Magnesium Total Bilirubin Cancelled Conjugated Bilirubin 0.4 H Cancelled AST 58 H Cancelled ALT 55 Alkaline Phosphatase Total Protein Albumin Triglycerides Total Cholesterol LDL Cholesterol, Calc HDL Cholesterol Lipase Urine Color Urine Clarity Urine pH Ur Specific [place] Urine Protein Urine Ketones Urine Blood Urine Nitrite Urine Bilirubin Urine Urobilinogen Ur Leukocyte Esterase Urine RBC Urine WBC Ur Epithelial Cells Urine Crystals Urine Bacteria Urine Mucus Urine Other Ur Culture Indicated? Urine Glucose Urine Opiates Screen Urine Methadone Screen Ur Barbiturates Screen Ur Tricyclics Screen Ur Amphetamines Screen U Benzodiazepines Scrn Urine Cocaine Screen Ur THC Screen 01/07/24 01/07/24 01/07/24 06:25 06:25 06:25 WBC RBC Hgb Hct MCV MCH MCHC RDW Plt Count MPV Immature Gran % Neutrophils % Lymphocytes % Monocytes % Eosinophils % Basophils % Nucleated RBC % Absolute Neutrophils Absolute Lymphocytes Absolute Monocytes Absolute Eosinophils Absolute Basophils PT INR Sodium Potassium Chloride Carbon Dioxide Anion Gap BUN Creatinine Est GFR (CKD-EPI 2020) Glucose Calcium Phosphorus Magnesium Total Bilirubin Conjugated Bilirubin AST ALT Cancelled Alkaline Phosphatase 100 Cancelled Total Protein 5.9 L Cancelled Albumin 3.1 L Triglycerides Total Cholesterol LDL Cholesterol, Calc HDL Cholesterol Lipase Urine Color Urine Clarity Urine pH Ur Specific [place] Urine Protein Urine Ketones Urine Blood Urine Nitrite Urine Bilirubin Urine Urobilinogen Ur Leukocyte Esterase Urine RBC Urine WBC Ur Epithelial Cells Urine Crystals Urine Bacteria Urine Mucus Urine Other Ur Culture Indicated? Urine Glucose Urine Opiates Screen Urine Methadone Screen Ur Barbiturates Screen Ur Tricyclics Screen Ur Amphetamines Screen U Benzodiazepines Scrn Urine Cocaine Screen Ur THC Screen 01/07/24 01/07/24 01/07/24 06:25 06:25 06:25 WBC RBC Hgb Hct MCV MCH MCHC RDW Plt Count MPV Immature Gran % Neutrophils % Lymphocytes % Monocytes % Eosinophils % Basophils % Nucleated RBC % Absolute Neutrophils Absolute Lymphocytes Absolute Monocytes Absolute Eosinophils Absolute Basophils PT INR Sodium Potassium Chloride Carbon Dioxide Anion Gap BUN Creatinine Est GFR (CKD-EPI 2020) Glucose Calcium Phosphorus Magnesium Total Bilirubin Conjugated Bilirubin AST ALT Alkaline Phosphatase Total Protein Albumin Cancelled Triglycerides 190 H Cancelled Total Cholesterol 135 Cancelled LDL Cholesterol, Calc 53 HDL Cholesterol Lipase Urine Color Urine Clarity Urine pH Ur Specific [place] Urine Protein Urine Ketones Urine Blood Urine Nitrite Urine Bilirubin Urine Urobilinogen Ur Leukocyte Esterase Urine RBC Urine WBC Ur Epithelial Cells Urine Crystals Urine Bacteria Urine Mucus Urine Other Ur Culture Indicated? Urine Glucose Urine Opiates Screen Urine Methadone Screen Ur Barbiturates Screen Ur Tricyclics Screen Ur Amphetamines Screen U Benzodiazepines Scrn Urine Cocaine Screen Ur THC Screen 01/07/24 01/07/24 01/07/24 06:25 06:25 07:03 WBC RBC Hgb Hct MCV MCH MCHC RDW Plt Count MPV Immature Gran % Neutrophils % Lymphocytes % Monocytes % Eosinophils % Basophils % Nucleated RBC % Absolute Neutrophils Absolute Lymphocytes Absolute Monocytes Absolute Eosinophils Absolute Basophils PT INR Sodium Potassium Chloride Carbon Dioxide Anion Gap BUN Creatinine Est GFR (CKD-EPI 2020) Glucose Calcium Phosphorus Cancelled Magnesium Total Bilirubin Conjugated Bilirubin AST ALT Alkaline Phosphatase Total Protein Albumin Triglycerides Total Cholesterol LDL Cholesterol, Calc Cancelled HDL Cholesterol 44 Cancelled Lipase Urine Color Urine Clarity Urine pH Ur Specific [place] Urine Protein Urine Ketones Urine Blood Urine Nitrite Urine Bilirubin Urine Urobilinogen Ur Leukocyte Esterase Urine RBC Urine WBC Ur Epithelial Cells Urine Crystals Urine Bacteria Urine Mucus Urine Other Ur Culture Indicated? Urine Glucose Urine Opiates Screen Urine Methadone Screen Ur Barbiturates Screen Ur Tricyclics Screen Ur Amphetamines Screen U Benzodiazepines Scrn Urine Cocaine Screen Ur THC Screen PAWSS Have you Been Recently Intoxicated or Drunk Within the Last 30 days?: Yes Have you Ever Experienced Previous Episodes of Alcohol Withdrawal?: No Have you ever Experienced Withdrawal Seizures?: No Have you ever Experienced Delirium Tremens(DT)s?: No Have you ever undergone Alcohol Rehabilitation Treatment (i.e, inpt ot outpatient treatment programs)?: No Have you ever Experienced Blackouts?: Yes Have you ever Combined Alcohol with other Downers within the last 90 days?: No Have you ever Combined Alcohol with any other Substance of Abuse during the last 90 days?: Yes Positive Blood Alcohol level on Presentation? [PCS.BAL]: No Evidence of Increased Autonomic Activity (i.e. HR>120, tremor, sweating, agitation, nausea)?: No Result: 4 Time Spent with Patient Time Spent with Patient: 35-49 minutes Time was spent: preparing to see the patient(eg.review tests), obtaining and/or reviewing separately otained hiistory, ordering medications,tests, procedures, referring, communicating with other health healthcare corporate account director, indepentently interpreting results, counseling the patient and care coordination
[2024-01-07] MEDS: HYDROmorphone 2 MG/ML SYR IVP (10:19)
[2024-01-07] MEDS: MAGNESIUM SULFATE 2 GM/50 ML BAG IVINF (11:18)
[2024-01-07] MEDS: HYDROmorphone 2 MG/ML SYR 1 MG IVP ×3 (15:26→22:37)
--- NOTE | 2024-01-07 16:14 | DI.RAD_ITS ---
Exam(s) XR CHEST 2V PA LATERAL EXAM: XR CHEST 2V PA LATERAL CLINICAL HISTORY: hypoxia TECHNIQUE: 2D digital imaging was performed of the chest. One image was obtained. An AP view was ob tained. COMPARISON: CR XR CHEST 2V PA LATERAL from 02/27/2018 FINDINGS: MEDIASTINUM: Normal. HEART: Normal. PULMONARY VASCULATURE: Normal. LUNGS: There is atelectasis seen in the lung bases, left greater than right. No focal consolidating infiltrates are seen. PLEURAL SPACE: No pleural effusion or pneumothorax. BONE:Within normal limits for the patient's age. OTHER FINDINGS:There is poor inspiration. IMPRESSION: Poor inspiration with areas of atelectasis in the lung bases. No focal consolidating infiltrates. DATA REPOSITORY: RADIATION DOSE DELIVERED:
[2024-01-07] MEDS: hydrALAZINE 20 MG/ML VIAL 10 MG IVP (18:17)
[2024-01-07 18:33] LABS: Parathyroid Hormone,Intact <6 pg/mL (19-88)
[2024-01-07] MEDS: Acetaminophen 325 MG TAB PO (18:37)
[2024-01-07] MEDS: Normal Saline - Diluent 50 ML VIAL IJ (19:39)
[2024-01-07] MEDS: Omnipaque 350 MG/ML 100 ML BTL IJ (19:40)
--- NOTE | 2024-01-07 19:42 | DI.CT_ITS ---
Exam(s) CT CHEST PE CTA EXAM: CT CHEST PE CTA CLINICAL HISTORY: acute hypoxia. TECHNIQUE: Imaging Protocol: Axial CT angiography was performed with multi-slice acquisition and mu lti-planar reconstructions as well as axial, coronal and sagittal MIP reconstructions. CONTRAST MATERIAL: Intravenous: Omnipaque 350 Contrast volume:100 ml COMPARISON: CT CT RENAL COLIC WO from 01/06/2024 CR XR CHEST 2V PA LATERAL from 01/07/2024 FINDINGS: Pulmonary Arteries: No evidence of filling defect to suggest pulmonary emboli. Tracheobronchial tree: No mucous plugging. Mediastinum and Natalya: No dominant adenopathy or fluid collection. Pulmonary parenchyma: Basilar atelectasis. Pleura: No effusion or pneumothorax. Heart: The heart is not dilated. No coronary artery calcifications are seen. Aorta: Thoracic aorta non-dilated. No dissection. Upper abdomen: No acute findings. Marked hepatic steatosis. Inflammation around the pancreas. Bones: Unremarkable for age. Tubes, Catheters, and Lines: None Soft tissues: Unremarkable. IMPRESSION: No evidence of pulmonary embolism. Limited evaluation of the lungs due to expiratory changes. Basilar atelectasis is present. Significant inflammation/fluid around the pancreas. This area is not fully included on the exam but appears significantly worsened compared to the prior CT abdomen pelvis. RADIATION DOSE DELIVERED: Total DLP DATA REPOSITORY: All CT scans at this facility are submitted to the National Radiology Data Registry (NRDR) Dose Index Registry (DIR) with the [employer] (ACR). RADIATION OPTIMIZATION: All CT scans at this facility use at least one of these dose optimization te chniques: automated exposure control; mA and/or kV adjustment per patient size (includes targeted exa ms where dose is matched to clinical indication); or iterative reconstruction.
--- NOTE | 2024-01-07 20:05 | DI.VRAD_ITS ---
PROCEDURE INFORMATION: Exam: CTA Chest With Contrast Exam date and time: 01/07/2024 7:37 PM Age: 28 years old Clinical indication: Other: Acute hypoxia TECHNIQUE: Imaging protocol: Computed tomographic angiography of the chest with contrast. Exam focused on the arteries. 3D rendering (Not supervised by radiologist): MIP and/or 3D reconstructed images were created by the technologist. Contrast material: OMNIPAQUE; Contrast volume: 100 ml; Contrast route: INTRAVENOUS (IV); COMPARISON: CR XR CHEST 2V PA LATERAL 01/07/2024 4:13 PM FINDINGS: Pulmonary arteries: Normal. No pulmonary emboli. Aorta: Unremarkable. No aortic aneurysm. No aortic dissection. Lungs: Moderate patchy parenchymal consolidation in the bilateral lower lobes. Pleural spaces: Unremarkable. No pneumothorax. No pleural effusion. Heart: Unremarkable. No cardiomegaly. No pericardial effusion. Lymph nodes: Unremarkable. No enlarged lymph nodes. Intraperitoneal space: Significant diffuse fatty stranding partially visualized throughout the upper abdomen Bones/joints: Unremarkable. No acute fracture. Soft tissues: Unremarkable. IMPRESSION: 1. Significant fatty stranding noted throughout the visualized portion of the upper abdomen. This raises concern for acute abdominal pathology, particularly pancreatitis. Correlation with dedicated CT abdomen and pelvis recommended. 2. Patchy moderate bilateral lower lobe infiltrate versus atelectasis 3. No evidence of pulmonary embolus or acute aortic pathology. Dictated and Authenticated by: Zach Hernandez MD. Ordering:GAURANG Tyson MD
[2024-01-07] MEDS: Labetalol 100 MG/20 ML VIAL 20 MG IVP (22:41)
[2024-01-08] VITALS (16 sets, daily range): BP systolic 154–194; BP diastolic 98–146; PULSE 96–126; RESP 16–22; TEMP 35.9–37; O2SAT 90–95
--- NOTE | 2024-01-08 | DI.CT_ITS ---
Exam(s) CT ABDOMEN PELVIS W EXAM: CT ABDOMEN PELVIS W CLINICAL HISTORY: abdominal pain, pancreatitis. TECHNIQUE: Imaging Protocol: Axial computed tomography images with coronal and sagittal reformatted images were created and reviewed CONTRAST MATERIAL: Intravenous: Omnipaque 350 Contrast volume:100 ml Oral: yes / no COMPARISON: CT CT RENAL COLIC WO from 01/06/2024 FINDINGS: ABDOMEN and PELVIS: Lung Bases: Significant bibasilar atelectasis. Tiny bilateral pleural effusions. Liver: Hepatic steatosis.. No suspicious mass. Gallbladder and biliary tract: contrast in gall bladder secondary to prior studies. No biliary dilat ion. Pancreas: Interval worsening of inflammation of the pancreas. Surrounding fluid now present. No usha dence of hemorrhage or pseudocyst. Spleen: Normal. Kidneys: Normal size, contour and axis. No radiodense stones. No obstructive uropathy. No suspicious masses seen. Adrenal glands: No masses seen. Vasculature: Abdominal aorta non-dilated. Soft tissues: Unremarkable. Bladder: Nearly empty. No gross wall thickening. Bowel: No obstruction. Secondary inflammation of the duodenum. Of the fat again noted within the wa ll of the colon. Appendix normal. Peritoneal cavity: Ascites seen around liver spleen. Fluid noted around pancreas as well as extendin g along the paracolic gutters into the pelvis. Free fluid in the low pelvis. Bones: Unremarkable for age. Reproductive organs: Unremarkable. Lymph nodes: No pathologically enlarged lymph nodes. IMPRESSION:: Significant interval worsening of pancreatitis. No pseudocyst or hemorrhage. Increase d ascites, moderate quantity. Significant bibasilar atelectasis as well as tiny bilateral pleural effusions. RADIATION DOSE DELIVERED: Total DLP DATA REPOSITORY: All CT scans at this facility are submitted to the National Radiology Data Registry (NRDR) Dose Index Registry (DIR) with the [employer] (A[employer]). RADIATION OPTIMIZATION: All CT scans at this facility use at least one of these dose optimization te chniques: automated exposure control; mA and/or kV adjustment per patient size (includes targeted exa ms where dose is matched to clinical indication); or iterative reconstruction.
[2024-01-08] MEDS: Normal Saline Flush 10 ML SYR IVP ×8 (00:08→22:21)
[2024-01-08] MEDS: Pantoprazole 40 MG VIAL IVP (00:08)
[2024-01-08] MEDS: hydrALAZINE 20 MG/ML VIAL 10 MG IVP ×3 (00:08→16:54)
[2024-01-08] MEDS: Enoxaparin 40 MG/0.4 ML SYR SC (00:08)
[2024-01-08] MEDS: HYDROmorphone 2 MG/ML SYR 1 MG IVP ×4 (01:00→08:52)
[2024-01-08] MEDS: Metoprolol 5 MG/5 ML VIAL IVP ×3 (02:12→21:39)
[2024-01-08] MEDS: Lactated Ringers 1,000 ML 100 ML IV (04:14)
[2024-01-08 07:27] LABS: Abs Immature Grans 0.39 10^3/uL (0.0-0.06); Absolute Basophil Count 0.09 10^3/uL (0.0-0.2); Absolute Monocyte Count 1.58 10^3/uL (0.1-0.8); Basophils % 0.3 %; Eosinophils % 0.8 %; HCT 52.2 % (40.0-50.0); HGB 18.3 g/dL (13.5-17.5); Immature Grans % 1.2 %; Lymphocytes % 3.1 %; MCH 37.2 pg (27.0-33.0); MCHC 35.1 % (32.0-36.0); MCV 106 fL (80-95); MPV 10.3 fL (8.0-11.0); Neutrophils % 89.6 %; Platelet Count 420 10^3/uL (130-400); RBC 4.92 10^6/uL (4.36-5.78); RDW 12.9 % (11.8-14.1); RDW-SD 51.2 fL
[2024-01-08 07:34] LABS: Absolute Eosinophil Count 0.25 10^3/uL (0.0-0.7); Absolute Lymphocyte Count 0.98 10^3/uL (1.2-3.4); Absolute Neutrophil Count 28.31 10^3/uL (1.2-6.7)
[2024-01-08 07:43] LABS: Diff Comment Diff Reviewed; Macrocytosis 1+
[2024-01-08 07:52] LABS: ALT 37 U/L (16-63); AST 32 U/L (15-37); Albumin 2.7 g/dL (3.4-5.0); Alkaline Phosphatase 101 U/L (46-116); Anion Gap 9.5 mmol/L (3-11); BUN 18 mg/dL (7-18); Bilirubin, Total 0.95 mg/dL (0.2-1.0); CO2 30.5 mmol/L (21.0-32.0); CREATININE 1.3 mg/dL (0.70-1.30); Calcium 10.2 mg/dL (8.5-10.1); Chloride 100 mmol/L (98-107); Glucose 96 mg/dL (74-106); Magnesium 1.4 mg/dL (1.8-2.4); Potassium 3.6 mmol/L (3.5-5.1); Sodium 140 mmol/L (136-145); Total Protein 6.1 g/dL (6.4-8.2)
[2024-01-08] MEDS: Folic Acid 1 MG TAB PO (08:53)
[2024-01-08] MEDS: Thiamine 100 MG TAB PO (08:53)
[2024-01-08] MEDS: amLODIPine 5 MG TAB 10 MG PO (08:53)
[2024-01-08] MEDS: Multivitamin TAB 1 TAB PO (08:53)
[2024-01-08] MEDS: Omnipaque 350 MG/ML 100 ML BTL IJ (09:15)
[2024-01-08] MEDS: Normal Saline - Diluent 50 ML VIAL IJ (09:15)
[2024-01-08 09:22] LABS: Lactate 1.8 mmol/L (0.6-1.4)
--- NOTE | 2024-01-08 09:29 | CMPROGNOTE_ITS ---
Date of service: 01/08/24 Time of Service: 09:29 Care Management Progress Note Progress Note Text Progress Note Text: Teo remains quite ill. His WBC has increased from 14.32 to 31.6 and he now appears to have pneumonia. Additional bloodwork was drawn and his Lipase was found to have increased to >375 and his CRP is 21.8. Teo continues to have a lot of pain and is requiring IV opioids every 2 -3 hours for a pain level of 9 to 10. CM provided Teo and his katina Simon with a Patient Assistance packet yesterday. [facility] has completed most of it and will be ready to submit it tomorrow. CM will follow up with [employer] regarding Medicaid. Discharge Potential Discharge Needs: Consult (possibly GI at [facility]) and PCP F/U Appt Anticipated Barriers to Discharge: Medical Status Patient/Family Education Needs: Review discharge instructions, discuss Ask Me Three Transportation: Private vehicle Plan: Anticipate Teo will be discharged home with no new services when medically cleared. He will followup with his surgeon and plan of care and transport with his ruby. CM will follow and support discharge needs. SDOH(Care Management) Screening Will the Patient Participate in the Screening?: Yes Do you worry about having a steady place to live?: no In the past 12 months, have you had to go without electric, gas, oil or water in your home?: no Have you or anyone in your house had to go without enough food to eat?: no Has lack of transportation kept you from medical appointments or from doing things needed for daily living?: no Has anyone in your support network made you feel unsafe for any reason?: no
[2024-01-08 09:37] LABS: C-Reactive Protein 21.18 mg/dL (<or=0.5)
[2024-01-08 09:42] LABS: Lipase > 375 U/L (16-77)
[2024-01-08] MEDS: cefTRIAXone 2 GM/50 ML BAG IVPB (10:23)
[2024-01-08 10:40] LABS: Procalcitonin < 0.1 ng/mL
[2024-01-08 11:51] LABS: Triglyceride 173 mg/dL (<150)
--- NOTE | 2024-01-08 11:58 | W.PM.PROGNOT ---
Date of Service Date of service: 01/08/24 Time of Service: 11:58 Assessment and Plan Assessment and plan (1) Pancreatitis, acute: Start date: 01/06/24 Status: Acute Assessment and plan: likely secondary to alcohol use disorder, TG were only mildly elevated on admission, repeat level ordered symptoms are not improving and CT shows diffuse pancreatic inflammation and ascites but no biliary obstruction, he has fatty liver changes as well he remains NPO although not necessary to keep NPO however, nausea has prevented him from taking po. will change his dilaudid to SC delivery until iv in place, also will give zofran ODT resume iv fluids once IV is established. Qualifiers: Pancreatitis type: alcohol induced Acute pancreatitis complication: no infection or necrosis Qualified Code(s): K85.20 - Alcohol induced acute pancreatitis without necrosis or infection (2) Hypercalcemia: Status: Chronic Assessment and plan: PTH level pending, no signs of sarcoid on imaging, not on calcium or vit D supplements; improved after hydration (3) TOMI (acute kidney injury): Start date: 01/06/24 Status: Acute Assessment and plan: improved w/ hydration, resume iv fluids once iv is established. (4) Hypomagnesemia: Start date: 01/06/24 Status: Acute Assessment and plan: d/t pancreatitis and poor intake, repeat level 1.4 today (was 1.1 on admission and torsten to 1.7 after replacement), I had ordered 2 gm IVPB this morning but currently w/out iv; will order oral replacement (5) Alcohol abuse: Status: Chronic Assessment and plan: no hx of alcohol withdrawal and CIWA scores have been low. will monitor for acute withdrawal but not currently on any withdrawal protocol. (6) HTN (hypertension): Status: Chronic Assessment and plan: still poorly controlled but in light of his ongoing pain, likely reactive, although he may have some underlying HTN. patinet begun on amlodipine. he did require iv treatment last night. I think that iv treatment would only be indicated if he has sustained SBP >180 mm, otherwise treat the cause fo rhis high BP. Qualifiers: Hypertension type: primary hypertension Qualified Code(s): I10 - Essential (primary) hypertension (7) Severe depression: Status: Chronic Assessment and plan: Patient noncompliant with medical therapy and drinks daily possibly self treating. He also has a history of ADHD off therapy. Long-term he should follow-up with PCP for more appropriate medical, lifestyle, and behavioral therapies. no change today. Subjective Subjective Interval history since last seen: Patient w/ ongoing diffuse abdominal pain, nausea but no vomiting. Pain radiating into his back. Stat CT abdomen and pelvis was done this morning and demonstrates diffuse pancreatic inflammation and peripancreatic fluid but no pseudocyst or abscess. GB contracted, and no biliary ductal dilatation. CT chest last night demonstrated bibasilar infiltrates. Today his WBC climbed to 31,000. I ordered blood cultures and Ceftriaxone however, he lost his iv and nursing has not been able to re-establish one. I have consulted for a midline. Exam Narrative Exam Narrative: Teo is lying in bed, he is in apparent pain from his pancreatitis, he does not appear to be dyspneic although he is requiring oxygen w/ SPO2 of 92% on 2 lpm Lungs: diminished breath sounds at bases, no rhonchi or wheezing Heart: regular, slightly tachycardic, no murmur Abdomen: distended, hypoactive bowel sounds, diffuse tenderness Extremities: no edema Objective Last Vital Signs Temp 36.7 C 01/08/24 07:49 Pulse 115 H 01/08/24 07:49 Resp 22 01/08/24 07:49 BP 162/118 H 01/08/24 07:49 Pulse Ox 93 01/08/24 10:12 Laboratory Results - last 24 hr 01/07/24 01/08/24 01/08/24 06:25 05:35 06:30 WBC 31.60 H* RBC 4.92 Hgb 18.3 H D Hct 52.2 H MCV 106 H MCH 37.2 H MCHC 35.1 RDW 12.9 Plt Count 420 H MPV 10.3 Immature Gran % 1.2 Neutrophils % 89.6 Lymphocytes % 3.1 Monocytes % 5.0 Eosinophils % 0.8 Basophils % 0.3 Nucleated RBC % 0.0 Absolute Neutrophils 28.31 H Absolute Lymphocytes 0.98 L Absolute Monocytes 1.58 H Absolute Eosinophils 0.25 Absolute Basophils 0.09 RBC Morphology See Below Macrocytosis 1+ VBG Lactate Sodium 140 Potassium 3.6 Chloride 100 Carbon Dioxide 30.5 Anion Gap 9.5 BUN 18 Creatinine 1.3 Est GFR (CKD-EPI 2020) 77.70 Glucose 96 Calcium 10.2 H Magnesium 1.4 L Total Bilirubin 0.95 AST 32 ALT 37 Alkaline Phosphatase 101 C-Reactive Protein Total Protein 6.1 L Albumin 2.7 L Triglycerides 173 H Lipase Procalcitonin PTH Intact <6 L 01/08/24 09:10 WBC RBC Hgb Hct MCV MCH MCHC RDW Plt Count MPV Immature Gran % Neutrophils % Lymphocytes % Monocytes % Eosinophils % Basophils % Nucleated RBC % Absolute Neutrophils Absolute Lymphocytes Absolute Monocytes Absolute Eosinophils Absolute Basophils RBC Morphology Macrocytosis VBG Lactate 1.8 H Sodium Potassium Chloride Carbon Dioxide Anion Gap BUN Creatinine Est GFR (CKD-EPI 2020) Glucose Calcium Magnesium Total Bilirubin AST ALT Alkaline Phosphatase C-Reactive Protein 21.18 H Total Protein Albumin Triglycerides Lipase > 375 H Procalcitonin < 0.1 PTH Intact PAWSS Have you Been Recently Intoxicated or Drunk Within the Last 30 days?: Yes Have you Ever Experienced Previous Episodes of Alcohol Withdrawal?: No Have you ever Experienced Withdrawal Seizures?: No Have you ever Experienced Delirium Tremens(DT)s?: No Have you ever undergone Alcohol Rehabilitation Treatment (i.e, inpt ot outpatient treatment programs)?: No Have you ever Experienced Blackouts?: Yes Have you ever Combined Alcohol with other Downers within the last 90 days?: No Have you ever Combined Alcohol with any other Substance of Abuse during the last 90 days?: Yes Positive Blood Alcohol level on Presentation? [PCS.BAL]: No Evidence of Increased Autonomic Activity (i.e. HR>120, tremor, sweating, agitation, nausea)?: No Result: 4 Time Spent with Patient Time Spent with Patient: 35-49 minutes Time was spent: preparing to see the patient(eg.review tests), ordering medications,tests, procedures, referring, communicating with other health intensive care medicine specialist, indepentently interpreting results, counseling the patient and care coordination
[2024-01-08] MEDS: Acetaminophen 325 MG TAB PO (12:15)
[2024-01-08] MEDS: HYDROmorphone 2 MG/ML SYR 1 MG SC (12:26)
[2024-01-08] MEDS: HYDROmorphone 2 MG/ML SYR SC ×2 (14:33→16:50)
[2024-01-08] MEDS: MAGNESIUM SULFATE 2 GM/50 ML BAG IVINF (16:55)
[2024-01-08] MEDS: Metoprolol 25 MG TAB PO (19:00)
[2024-01-08] MEDS: HYDROmorphone 2 MG/ML SYR IV ×2 (19:01→22:20)
[2024-01-08] MEDS: Docusate Sodium 100 MG CAP PO (21:27)
[2024-01-08] MEDS: Polyethylene Glycol 3350 17 GM PACKET PO (21:27)
[2024-01-09] VITALS (14 sets, daily range): BP systolic 117–164; BP diastolic 63–104; PULSE 98–117; RESP 2–20; TEMP 36.4–37.6; O2SAT 92–95
[2024-01-09] MEDS: HYDROmorphone 2 MG/ML SYR IV ×9 (00:35→23:21)
[2024-01-09] MEDS: Metoprolol 25 MG TAB PO ×5 (00:35→23:21)
[2024-01-09] MEDS: Lactated Ringers 1,000 ML 100 ML IV ×3 (00:35→23:19)
[2024-01-09] MEDS: Pantoprazole 40 MG VIAL IVP ×2 (00:35→23:20)
[2024-01-09] MEDS: Normal Saline Flush 10 ML SYR IVP ×12 (00:36→20:19)
[2024-01-09] MEDS: Enoxaparin 40 MG/0.4 ML SYR SC ×2 (00:36→23:20)
[2024-01-09] MEDS: hydrALAZINE 20 MG/ML VIAL 10 MG IVP ×2 (00:36→05:31)
[2024-01-09] MEDS: Metoprolol 5 MG/5 ML VIAL IVP (02:40)
[2024-01-09] MEDS: Acetaminophen 325 MG TAB PO ×2 (02:45→20:17)
[2024-01-09 07:17] LABS: Abs Immature Grans 0.34 10^3/uL (0.0-0.06); Absolute Eosinophil Count 0.55 10^3/uL (0.0-0.7); Absolute Lymphocyte Count 1.09 10^3/uL (1.2-3.4); Basophils % 0.2 %; HCT 36.1 % (40.0-50.0); HGB 12.7 g/dL (13.5-17.5); Immature Grans % 1.2 %; MCH 37.9 pg (27.0-33.0); MCHC 35.2 % (32.0-36.0); MCV 108 fL (80-95); MPV 10.7 fL (8.0-11.0); Monocytes % 6.4 %; Neutrophils % 86.2 %; Platelet Count 249 10^3/uL (130-400); RBC 3.35 10^6/uL (4.36-5.78); RDW-SD 52.1 fL
[2024-01-09 07:35] LABS: ALT 20 U/L (16-63); AST 15 U/L (15-37); Albumin 1.8 g/dL (3.4-5.0); Alkaline Phosphatase 69 U/L (46-116); Anion Gap 7.1 mmol/L (3-11); BUN 18 mg/dL (7-18); Bilirubin, Total 0.62 mg/dL (0.2-1.0); CO2 30.9 mmol/L (21.0-32.0); Calcium 8.4 mg/dL (8.5-10.1); Chloride 97 mmol/L (98-107); Estimated GFR 106.45 (mL/min/1.73m2); Glucose 67 mg/dL (74-106); Magnesium 1.3 mg/dL (1.8-2.4); Potassium 3.6 mmol/L (3.5-5.1); Sodium 135 mmol/L (136-145); Total Protein 4.7 g/dL (6.4-8.2)
[2024-01-09 07:37] LABS: Absolute Basophil Count 0.05 10^3/uL (0.0-0.2); Absolute Monocyte Count 1.75 10^3/uL (0.1-0.8); Absolute Neutrophil Count 23.52 10^3/uL (1.2-6.7)
[2024-01-09] MEDS: amLODIPine 5 MG TAB 10 MG PO (07:38)
[2024-01-09] MEDS: Folic Acid 1 MG TAB PO (07:38)
[2024-01-09] MEDS: Multivitamin TAB 1 TAB PO (07:38)
[2024-01-09] MEDS: Thiamine 100 MG TAB PO (07:39)
[2024-01-09 07:53] LABS: WBC 27.28 10^3/uL (4.4-10.8)
[2024-01-09] MEDS: Magnesium Oxide 400 MG TAB 800 MG PO ×2 (08:30→20:18)
[2024-01-09] MEDS: MAGNESIUM SULFATE 4 GM/100 ML BAG IVINF (08:32)
[2024-01-09 08:48] LABS: Diff Comment Diff Reviewed
[2024-01-09 08:49] LABS: Macrocytosis 1+; Polychromasia Present
[2024-01-09] MEDS: AZITHROMYCIN 500 MG in Normal Saline 250 ML 250 MG IVPB (09:01)
[2024-01-09] MEDS: cefTRIAXone 2 GM/50 ML BAG IVPB (11:00)
--- NOTE | 2024-01-09 11:27 | PGE_ITS ---
Date of Service Date of service: 01/09/24 Time of Service: 11:27 Assessment and Plan Assessment and plan (1) Pancreatitis, acute: Start date: 01/06/24 Status: Acute Assessment and plan: likely secondary to alcohol use disorder, TG were only mildly elevated on admission, repeat level also only mildly elevated. Symptoms have improved although not resolved. He still requiring narcotics to control his pain and still has not tolerated diet yet. Continue IV fluid hydration antiemetics and narcotic analgesics. Qualifiers: Pancreatitis type: alcohol induced Acute pancreatitis complication: no infection or necrosis Qualified Code(s): K85.20 - Alcohol induced acute pancreatitis without necrosis or infection (2) Hypercalcemia: Status: Chronic Assessment and plan: PTH level pending, no signs of sarcoid on imaging, not on calcium or vit D supplements; improved after hydration (3) TOMI (acute kidney injury): Start date: 01/06/24 Status: Resolved Assessment and plan: Resolved with IV fluid hydration. BUN is down to 18 creatinine 1.0 although he still having hypomagnesemia at 1.3 calcium levels now down to 8.4 (4) Hypomagnesemia: Start date: 01/06/24 Status: Acute Assessment and plan: d/t pancreatitis and poor intake, repeat level 1.3 will give parenteral and oral replacement (5) Elevated transaminase level: Status: Acute Assessment and plan: Secondary to alcoholic hepatitis now resolving (6) Alcohol abuse: Status: Chronic Assessment and plan: no hx of alcohol withdrawal and CIWA scores have been low. will monitor for acute withdrawal but not currently on any withdrawal protocol. (7) HTN (hypertension): Status: Chronic Assessment and plan: BP markedly improved now down to 133/80 likely a combination of hypertension exacerbated by acute pain from his pancreatitis. Continue amlodipine 10 mg daily and metoprolol tartrate 25 mg every 6 hours. Qualifiers: Hypertension type: primary hypertension Qualified Code(s): I10 - Essential (primary) hypertension (8) Severe depression: Status: Chronic Assessment and plan: Patient noncompliant with medical therapy and drinks daily possibly self treating. He also has a history of ADHD off therapy. Long-term he should follow-up with PCP for more appropriate medical, lifestyle, and behavioral therapies. no change today. Subjective Subjective Interval history since last seen: (His pain is somewhat better and seems to be waxing and waning. It is now more focalized to the left side as opposed to generalized diffuse abdominal pain. He is not having the severe excruciating pain he had yesterday. The Dilaudid seems to be controlling it. He remains afebrile but still requires supplemental oxygen and is currently on ceftriaxone 2 g IV and I added azithromycin for treatment of his pneumonia. Yesterday CT scan did not show any pancreatic abscess/cyst and no gallbladder distention or biliary ductal distention. Did show a lot of pancreatic inflammation and peripancreatic fluid. I discussed these results with Oliverio as well as Nya who is his surrogate mother. Teo has tried some clear liquids but felt nauseated backed off on the fluids. He has not passed flatus or bowel movement as of yet but feels like a bowel movement is coming on. Exam Narrative Exam Narrative: Obese young white male lying in bed who appears to be ill but does not appear toxic like he did yesterday. He is alert and oriented. Skin without diaphoresis Lungs with some diffuse expiratory wheezes diminished breath sounds both lung bases Heart is regular rate and rhythm Abdomen obese firm but not rigid no rebound tenderness he does have active bowel sounds Objective Last Vital Signs Temp 37.1 C 01/09/24 07:20 Pulse 117 H 01/09/24 07:20 Resp 15 01/09/24 07:20 BP 132/89 01/09/24 07:20 Pulse Ox 94 01/09/24 09:16 Laboratory Results - last 24 hr 01/08/24 01/09/24 01/09/24 06:30 06:30 06:30 WBC 27.28 H* RBC 3.35 L Hgb 12.7 L D Hct 36.1 L MCV 108 H MCH 37.9 H MCHC 35.2 RDW 13.0 Plt Count 249 MPV 10.7 Immature Gran % 1.2 Neutrophils % 86.2 Lymphocytes % 4.0 Monocytes % 6.4 Eosinophils % 2.0 Basophils % 0.2 Nucleated RBC % 0.0 Absolute Neutrophils 23.52 H Absolute Lymphocytes 1.09 L Absolute Monocytes 1.75 H Absolute Eosinophils 0.55 Absolute Basophils 0.05 RBC Morphology See Below Polychromasia Present Macrocytosis 1+ Sodium 135 L Potassium 3.6 Chloride 97 L Carbon Dioxide 30.9 Anion Gap 7.1 BUN 18 Creatinine 1.0 Est GFR (CKD-EPI 2020) 106.45 Glucose 67 L Calcium 8.4 L Magnesium 1.3 L Cancelled Total Bilirubin 0.62 AST 15 ALT 20 Alkaline Phosphatase 69 Total Protein 4.7 L Albumin 1.8 L Triglycerides 173 H PAWSS Have you Been Recently Intoxicated or Drunk Within the Last 30 days?: Yes Have you Ever Experienced Previous Episodes of Alcohol Withdrawal?: No Have you ever Experienced Withdrawal Seizures?: No Have you ever Experienced Delirium Tremens(DT)s?: No Have you ever undergone Alcohol Rehabilitation Treatment (i.e, inpt ot outpatient treatment programs)?: No Have you ever Experienced Blackouts?: Yes Have you ever Combined Alcohol with other Downers within the last 90 days?: No Have you ever Combined Alcohol with any other Substance of Abuse during the last 90 days?: Yes Positive Blood Alcohol level on Presentation? [PCS.BAL]: No Evidence of Increased Autonomic Activity (i.e. HR>120, tremor, sweating, agitation, nausea)?: No Result: 4 Time Spent with Patient Time Spent with Patient: 35-49 minutes Time was spent: preparing to see the patient(eg.review tests), ordering medications,tests, procedures, referring, communicating with other health manager urgent care, indepentently interpreting results, counseling the patient (And patient's family) and care coordination
--- NOTE | 2024-01-09 13:17 | PDOC.CMPRO ---
Date of service: 01/09/24 Time of Service: 13:18 Care Management Progress Note Progress Note Text Progress Note Text: Teo was sitting up in bed when CM met with him. His fiancee was with him and Teo seemed much more engaged today. He stated he is starting to feel a little bit better. His pain is not as severe as it has been and he informed CM that he is trying to stretch out his doses of Dilaudid. Teo has been on a clear liquid diet and his tolerance has been only fair. He remains on the CIWA scale but is only scoring 0-2. Aurora, Teo's fiancee, has worked on his Patient Financial Assistance application and plans to meet with Patient Financial assistance staff tomorrow. Fortunately, Teo's WBC has finally started to turn around and was down to 27.28 from 31.60 yesterday. He indicated that he is hopeful that maybe he is beginning to turn the corner. Discharge Potential Discharge Needs: PCP F/U Appt Anticipated Barriers to Discharge: Medical Status Patient/Family Education Needs: Review discharge instructions, discuss Ask Me Three Transportation: Private vehicle SDOH(Care Management) Screening Will the Patient Participate in the Screening?: Yes Do you worry about having a steady place to live?: no In the past 12 months, have you had to go without electric, gas, oil or water in your home?: no Have you or anyone in your house had to go without enough food to eat?: no Has lack of transportation kept you from medical appointments or from doing things needed for daily living?: no Has anyone in your support network made you feel unsafe for any reason?: no
[2024-01-09] MEDS: Levalbuterol 1.25 MG/3 ML UPD VIAL UPD ×2 (17:07→19:40)
[2024-01-09] MEDS: Docusate Sodium 100 MG CAP PO (20:17)
[2024-01-09 22:11] LABS: Legionella Ag Detection Urine Negative (Negative)
[2024-01-10] VITALS (17 sets, daily range): BP systolic 132–153; BP diastolic 83–100; PULSE 94–104; RESP 2–19; TEMP 35.8–36.9; O2SAT 93–98
[2024-01-10] MEDS: HYDROmorphone 2 MG/ML SYR IV ×7 (01:43→22:14)
[2024-01-10] MEDS: Metoprolol 25 MG TAB PO ×3 (06:29→17:51)
[2024-01-10 07:19] LABS: Abs Immature Grans 0.33 10^3/uL (0.0-0.06); Absolute Basophil Count 0.07 10^3/uL (0.0-0.2); Absolute Monocyte Count 1.97 10^3/uL (0.1-0.8); Basophils % 0.3 %; Eosinophils % 3.8 %; HCT 35.5 % (40.0-50.0); HGB 12.6 g/dL (13.5-17.5); Immature Grans % 1.4 %; Lymphocytes % 4.5 %; MCH 37.4 pg (27.0-33.0); MCHC 35.5 % (32.0-36.0); MCV 105 fL (80-95); MPV 10.6 fL (8.0-11.0); Monocytes % 8.5 %; Neutrophils % 81.5 %; Platelet Count 271 10^3/uL (130-400); RBC 3.37 10^6/uL (4.36-5.78); RDW 12.8 % (11.8-14.1); RDW-SD 49.7 fL; WBC 23.13 10^3/uL (4.4-10.8)
[2024-01-10 07:35] LABS: ALT 12 U/L (16-63); AST 15 U/L (15-37); Absolute Eosinophil Count 0.88 10^3/uL (0.0-0.7); Absolute Lymphocyte Count 1.04 10^3/uL (1.2-3.4); Absolute Neutrophil Count 18.85 10^3/uL (1.2-6.7); Albumin 1.4 g/dL (3.4-5.0); Alkaline Phosphatase 57 U/L (46-116); Anion Gap 9.5 mmol/L (3-11); BUN 10 mg/dL (7-18); Bilirubin, Total 0.41 mg/dL (0.2-1.0); C-Reactive Protein > 25.00 mg/dL (<or=0.5); CO2 27.5 mmol/L (21.0-32.0); CREATININE 0.7 mg/dL (0.70-1.30); Calcium 7.7 mg/dL (8.5-10.1); Chloride 97 mmol/L (98-107); Estimated GFR 130.32 (mL/min/1.73m2); Glucose 65 mg/dL (74-106); Potassium 3.4 mmol/L (3.5-5.1); Sodium 134 mmol/L (136-145); Total Protein 4.2 g/dL (6.4-8.2)
[2024-01-10 07:46] LABS: Magnesium 1.2 mg/dL (1.8-2.4)
[2024-01-10] MEDS: Normal Saline Flush 10 ML SYR IVP ×6 (07:54→22:16)
[2024-01-10] MEDS: Levalbuterol 1.25 MG/3 ML UPD VIAL UPD ×3 (07:57→20:43)
[2024-01-10] MEDS: Multivitamin TAB 1 TAB PO (07:58)
[2024-01-10] MEDS: amLODIPine 5 MG TAB 10 MG PO (07:58)
[2024-01-10] MEDS: Folic Acid 1 MG TAB PO (07:58)
[2024-01-10] MEDS: Docusate Sodium 100 MG CAP PO ×2 (07:58→19:47)
[2024-01-10] MEDS: Polyethylene Glycol 3350 17 GM PACKET PO (07:58)
[2024-01-10] MEDS: Magnesium Oxide 400 MG TAB 800 MG PO ×2 (07:59→19:47)
[2024-01-10] MEDS: Thiamine 100 MG TAB PO (07:59)
[2024-01-10] MEDS: MAGNESIUM SULFATE 4 GM/100 ML BAG IVINF (08:05)
[2024-01-10] MEDS: Potassium Chloride Liquid 20 MEQ PKT PO ×2 (08:06→19:47)
[2024-01-10] MEDS: Protein Nutritional Supplement 16 GM 1 OUNCE PACKET PO (08:06)
[2024-01-10 08:11] LABS: Diff Comment Agrees w/ Instrument
[2024-01-10 08:12] LABS: Macrocytosis 3+
[2024-01-10] MEDS: AZITHROMYCIN 250 MG in Normal Saline 250 ML IVPB (08:48)
[2024-01-10] MEDS: cefTRIAXone 2 GM/50 ML BAG IVPB (10:07)
--- NOTE | 2024-01-10 10:28 | CMPROGNOTE_ITS ---
Date of service: 01/10/24 Time of Service: 10:28 Care Management Progress Note Progress Note Text Progress Note Text: Teo was lying in bed in a dark room when CM met with him. He stated that he is feeling a little better today, but was getting ready to take a nap. Per MD, he is improving, although he is not yet ready for discharge. He is being encouraged to mobilize out of bed, and he stated that he plans to get up and take a shower later today. He reported that his fiance will be in later, and plans to meet with the patient billing department to discuss the financial assistance offered by [facility]. CM will continue to follow. Discharge Potential Discharge Needs: PCP F/U Appt Anticipated Barriers to Discharge: None Identified Patient/Family Education Needs: Review discharge instructions, discuss Ask Me Three Transportation: Private vehicle Plan: Anticipate Teo will return home once medically cleared. His fiance will drive him home via private vehicle. He will follow up with his PCP and discharge plan of care. CM will continue to follow. SDOH(Care Management) Screening Will the Patient Participate in the Screening?: Yes Do you worry about having a steady place to live?: no In the past 12 months, have you had to go without electric, gas, oil or water in your home?: no Have you or anyone in your house had to go without enough food to eat?: no Has lack of transportation kept you from medical appointments or from doing things needed for daily living?: no Has anyone in your support network made you feel unsafe for any reason?: no
[2024-01-10] MEDS: Lactated Ringers 1,000 ML 100 ML IV (10:45)
--- NOTE | 2024-01-10 14:59 | PHA.REVIEW2 ---
Pharmacy Admission Review Admission Clinical Review Admission Pharmacy Review: Elevated transaminase level (Acute) Hypomagnesemia (Acute) Pancreatitis, acute (Acute) No Known Allergies Allergy (Verified 01/06/24 16:42) Resuscitation Status Full Code Height 6 ft 1 in Weight 118.841 kg Pharmacy Admission Review Renal Dosing Renal Dosing: BUN 10 mg/dL (7-18) 01/10/24 06:30 Creatinine 0.7 mg/dL (0.70-1.30) 01/10/24 06:30 Medications needing adjustments: Reviewed (CrCl 215.96 mL/min) List of meds needing interventions: Current medications are okay Anticoagulation Anticoagulation: Hgb 12.6 g/dL (13.5-17.5) L 01/10/24 06:30 Hct 35.5 % (40.0-50.0) L 01/10/24 06:30 Plt Count 271 10^3/uL (130-400) 01/10/24 06:30 INR 1.0 (0.9-1.1) 01/07/24 06:25 Creatinine 0.7 mg/dL (0.70-1.30) 01/10/24 06:30 DVT Prophylaxis: Reviewed Medications: Enoxaparin (40mg daily) Opiate Usage Evaluate Pain Scale/Pains Meds: Reviewed (PRN hydromorphone - 8 doses in last 24 hours) Scheduled Bowel Reg ordered if on Opiates?: No (PRN docusate/Miralax) Relevant Labs Relevant Labs: Sodium 134 mmol/L (136-145) L 01/10/24 06:30 Potassium 3.4 mmol/L (3.5-5.1) L 01/10/24 06:30 Chloride 97 mmol/L (98-107) L 01/10/24 06:30 Phosphorus Cancelled 01/07/24 07:03 Magnesium 1.2 mg/dL (1.8-2.4) L 01/10/24 06:30 C-Reactive Protein > 25.00 mg/dL (<or=0.5) H 01/10/24 06:30 Electrolytes, C-Reactive P, ESR: Reviewed (Na 134, K 3.4 - repleting , Mg 1.2 - repleting) Cardiac Review Cardiac Review: Blood Pressure 144/83 1143 Blood Pressure 151/93 0810 Blood Pressure 142/92 0752 Blood Pressure 145/97 0627 BP, HR, EF%: Reviewed (HR 98) QTc Review QTc: Reviewed (477 from 01/06/24) IV to PO Switch IV Medications: Reviewed (azithromycin, ceftriaxone, hydralazine, metoprolol, pantoprazole) Home Meds Home Med List reviewed: Reviewed Relevent Home Meds Not ordered & why?: albuterol (PRN), clonazepam (not taking), Adderall (not taking), famotidine (not taking), quetiapine (not taking) and sucralfate (not taking) Current Meds Current Medication Order Review: Reviewed Pharmacy Antibiotic Review Relevant Labs: Relevant Labs 01/10/24 06:30 C-Reactive Protein > 25.00 H WBC 23.13 10^3/uL (4.4-10.8) H 01/10/24 06:30 Procalcitonin < 0.1 ng/mL 01/08/24 09:10 Temperature 35.8 C Temperature 36.6 C Temperature 36.3 C Temperature 36.2 C Microbiology 01/08/24 09:10 Blood Culture - Preliminary Blood NO GROWTH 48 HOURS 01/08/24 08:58 Blood Culture - Preliminary Blood NO GROWTH 48 HOURS Comments: Patient is on azithromycin, day 2, and ceftriaxone day 3 for pancreatitis. WBC decreased from 27.28.
--- NOTE | 2024-01-10 15:57 | PGE_ITS ---
Date of Service Date of service: 01/10/24 Time of Service: 15:58 Assessment and Plan Assessment and plan (1) Pancreatitis, acute: Start date: 01/06/24 Status: Acute Assessment and plan: Secondary to alcohol abuse clinically improving. Still having problems with electrolyte abnormalities including hypomagnesemia and hypokalemia which we are correcting with oral and IV replacement. Discontinue LR maintenance IVs. Patient seems to be tolerating his diet we will recheck his electrolytes and LFTs in the morning along with a repeat lipase level. Patient is strongly encouraged to refrain from further alcohol intake in order to prevent chronic pancreatitis. Qualifiers: Pancreatitis type: alcohol induced Acute pancreatitis complication: no infection or necrosis Qualified Code(s): K85.20 - Alcohol induced acute pancreatitis without necrosis or infection (2) Aspiration pneumonia: Status: Acute Assessment and plan: Continue Rocephin 2 g IV daily along with azithromycin. It is unclear whether or not he actually aspirated nevertheless he had clinical signs and radiologic evidence of pneumonia with fever and leukocytosis along with bilateral lower lobe infiltrates on his CT scan. Continue to encourage pulmonary toiletry with I-S and acapella as well as mobilization out of bed. Qualifiers: Aspiration pneumonia type: unspecified Laterality: bilateral Lung location: lower lobe of lung Qualified Code(s): J69.0 - Pneumonitis due to inhalation of food and vomit (3) Hypoalbuminemia: Status: Acute Assessment and plan: Secondary to poor nutrition due to pancreatitis. Patient has been started on protein supplementation (4) Hypercalcemia: Status: Chronic Assessment and plan: PTH level is actually low not high which is the opposite of what you would expect and hypercalcemia. His calcium level is actually low now however this corrects based on his albumin level which is low. (5) TOMI (acute kidney injury): Start date: 01/06/24 Status: Resolved Assessment and plan: Resolved creatinine is back to normal (6) Hypomagnesemia: Start date: 01/06/24 Status: Acute Assessment and plan: d/t pancreatitis and poor intake, repeat magnesium down to 1.2. Patient has been given IV and oral replacement today. Will recheck his labs in the morning. (7) Elevated transaminase level: Status: Acute Assessment and plan: Secondary to alcoholic hepatitis now resolved (8) Alcohol abuse: Status: Chronic Assessment and plan: no hx of alcohol withdrawal and CIWA scores have been low. will monitor for acute withdrawal but not currently on any withdrawal protocol. (9) HTN (hypertension): Status: Chronic Assessment and plan: BP markedly improved now down to 133/80 likely a combination of hypertension exacerbated by acute pain from his pancreatitis. Continue amlodipine 10 mg daily and metoprolol tartrate 25 mg every 6 hours. Qualifiers: Hypertension type: primary hypertension Qualified Code(s): I10 - Essential (primary) hypertension (10) Severe depression: Status: Chronic Assessment and plan: Patient noncompliant with medical therapy and drinks daily possibly self treating. He also has a history of ADHD off therapy. Long-term he should follow-up with PCP for more appropriate medical, lifestyle, and behavioral therapies. no change today. (11) DVT prophylaxis: Status: Acute Assessment and plan: Currently on enoxaparin 40 mg subcutaneously daily Subjective Subjective Interval history since last seen: Patient states he is feeling better today and his abdominal pain is improved still a little bit of residual pain in his back but it seems to be lower back pain probably related to him being in bed too long. He has no nausea no vomiting and is actually tolerating a solid diet today. He still having problems with electrolyte problems including low potassium and magnesium. Still on IV fluids which I am going to discontinue today now that he is eating and drinking adequately. He is not requiring as frequent dosing of his Dilaudid. Patient was sitting up in bed eating lunch and talking with his family including his and daughter and his sister. Exam Narrative Exam Narrative: Teo appears more comfortable he is more talkative today seems to be tolerating his lunch Lungs are clear anteriorly however posteriorly still has diminished breath sounds at the bases but seems to be having improved aeration, I encouraged him to get up out of bed this will help with his back pain as well as improve his bibasilar pneumonia Heart is regular rate and rhythm Abdomen is obese soft no distention no guarding no rebound tenderness Lower back minimal left paralumbar tenderness Objective Last Vital Signs Temp 35.8 C L 01/10/24 15:02 Pulse 94 H 01/10/24 15:02 Resp 17 01/10/24 15:02 BP 151/95 H 01/10/24 15:02 Pulse Ox 93 01/10/24 15:28 Laboratory Results - last 24 hr 01/09/24 01/10/24 10:53 06:30 WBC 23.13 H RBC 3.37 L Hgb 12.6 L Hct 35.5 L MCV 105 H MCH 37.4 H MCHC 35.5 RDW 12.8 Plt Count 271 MPV 10.6 Immature Gran % 1.4 Neutrophils % 81.5 Lymphocytes % 4.5 Monocytes % 8.5 Eosinophils % 3.8 Basophils % 0.3 Nucleated RBC % 0.0 Absolute Neutrophils 18.85 H Absolute Lymphocytes 1.04 L Absolute Monocytes 1.97 H Absolute Eosinophils 0.88 H Absolute Basophils 0.07 RBC Morphology See Below Macrocytosis 3+ Sodium 134 L Potassium 3.4 L Chloride 97 L Carbon Dioxide 27.5 Anion Gap 9.5 BUN 10 Creatinine 0.7 Est GFR (CKD-EPI 2020) 130.32 Glucose 65 L Calcium 7.7 L Magnesium 1.2 L Total Bilirubin 0.41 AST 15 ALT 12 L Alkaline Phosphatase 57 C-Reactive Protein > 25.00 H Total Protein 4.2 L Albumin 1.4 L Urine Legionella Ag Negative PAWSS Have you Been Recently Intoxicated or Drunk Within the Last 30 days?: Yes Have you Ever Experienced Previous Episodes of Alcohol Withdrawal?: No Have you ever Experienced Withdrawal Seizures?: No Have you ever Experienced Delirium Tremens(DT)s?: No Have you ever undergone Alcohol Rehabilitation Treatment (i.e, inpt ot ou tpatient treatment programs)?: No Have you ever Experienced Blackouts?: Yes Have you ever Combined Alcohol with other Downers within the last 90 days?: No Have you ever Combined Alcohol with any other Substance of Abuse during the last 90 days?: Yes Positive Blood Alcohol level on Presentation? [PCS.BAL]: No Evidence of Increased Autonomic Activity (i.e. HR>120, tremor, sweating, agitation, nausea)?: No Result: 4 Time Spent with Patient Time Spent with Patient: 25-34 minutes Time was spent: preparing to see the patient(eg.review tests), ordering medications,tests, procedures, referring, communicating with other health ocular care technician, indepentently interpreting results, counseling the patient and care coordination
[2024-01-10] MEDS: Acetaminophen 325 MG TAB PO (19:47)
[2024-01-11] VITALS (8 sets, daily range): BP systolic 133–153; BP diastolic 90–99; PULSE 97–114; RESP 5–18; TEMP 36.4–36.8; O2SAT 92–98
[2024-01-11] MEDS: Pantoprazole 40 MG VIAL IVP (00:16)
[2024-01-11] MEDS: Enoxaparin 40 MG/0.4 ML SYR SC (00:17)
[2024-01-11] MEDS: HYDROmorphone 2 MG/ML SYR IV ×5 (01:51→19:38)
[2024-01-11] MEDS: Levalbuterol 1.25 MG/3 ML UPD VIAL UPD (01:59)
[2024-01-11 06:51] LABS: Abs Immature Grans 0.18 10^3/uL (0.0-0.06); Absolute Basophil Count 0.09 10^3/uL (0.0-0.2); Absolute Lymphocyte Count 1.55 10^3/uL (1.2-3.4); Absolute Monocyte Count 2.15 10^3/uL (0.1-0.8); Basophils % 0.5 %; Eosinophils % 4.6 %; HCT 38.2 % (40.0-50.0); HGB 13.4 g/dL (13.5-17.5); Lymphocytes % 8.2 %; MCH 36.8 pg (27.0-33.0); MCHC 35.1 % (32.0-36.0); MCV 105 fL (80-95); MPV 9.6 fL (8.0-11.0); Monocytes % 11.4 %; Neutrophils % 74.3 %; Platelet Count 290 10^3/uL (130-400); RBC 3.64 10^6/uL (4.36-5.78); RDW 12.6 % (11.8-14.1); RDW-SD 49.3 fL; WBC 18.86 10^3/uL (4.4-10.8)
[2024-01-11 06:54] LABS: Absolute Eosinophil Count 0.87 10^3/uL (0.0-0.7); Absolute Neutrophil Count 14.01 10^3/uL (1.2-6.7)
[2024-01-11 07:19] LABS: ALT 17 U/L (16-63); AST 21 U/L (15-37); Albumin 2.1 g/dL (3.4-5.0); Alkaline Phosphatase 92 U/L (46-116); Anion Gap 7.2 mmol/L (3-11); BUN 9 mg/dL (7-18); Bilirubin, Total 0.45 mg/dL (0.2-1.0); CO2 30.8 mmol/L (21.0-32.0); CREATININE 0.7 mg/dL (0.70-1.30); Calcium 8.5 mg/dL (8.5-10.1); Chloride 97 mmol/L (98-107); Estimated GFR 130.32 (mL/min/1.73m2); Glucose 98 mg/dL (74-106); Lipase 27 U/L (16-77); Magnesium 1.8 mg/dL (1.8-2.4); Sodium 135 mmol/L (136-145); Total Protein 6.3 g/dL (6.4-8.2)
[2024-01-11 07:24] LABS: Diff Comment Agrees w/ Instrument; RBC Morphology Normal
[2024-01-11 07:32] LABS: C-Reactive Protein > 25.00 mg/dL (<or=0.5); Potassium 2.9 mmol/L (3.5-5.1)
[2024-01-11] MEDS: Normal Saline Flush 10 ML SYR IVP ×5 (07:36→21:50)
[2024-01-11] MEDS: AZITHROMYCIN 250 MG in Normal Saline 250 ML IVPB (07:40)
[2024-01-11] MEDS: Polyethylene Glycol 3350 17 GM PACKET PO (07:40)
[2024-01-11] MEDS: Protein Nutritional Supplement 16 GM 1 OUNCE PACKET PO (07:41)
[2024-01-11] MEDS: Potassium Chloride Liquid 20 MEQ PKT PO ×5 (07:41→20:26)
[2024-01-11] MEDS: Folic Acid 1 MG TAB PO (07:41)
[2024-01-11] MEDS: amLODIPine 5 MG TAB 10 MG PO (07:42)
[2024-01-11] MEDS: Docusate Sodium 100 MG CAP PO (07:42)
[2024-01-11] MEDS: Multivitamin TAB 1 TAB PO (07:42)
[2024-01-11] MEDS: Thiamine 100 MG TAB PO (07:42)
[2024-01-11] MEDS: Magnesium Oxide 400 MG TAB 800 MG PO ×2 (07:42→20:26)
[2024-01-11] MEDS: Metoprolol 25 MG TAB PO ×3 (09:05→20:26)
[2024-01-11] MEDS: Lisinopril 5 MG TAB PO (09:05)
[2024-01-11] MEDS: POTASSIUM CHLORIDE 20 MEQ/100 ML BAG 50 MEQ IVINF (09:07)
[2024-01-11] MEDS: Diclofenac 1% Gel 100 GM TUBE TP (09:12)
[2024-01-11] MEDS: cefTRIAXone 2 GM/50 ML BAG IVPB (10:07)
--- NOTE | 2024-01-11 10:18 | CMPROGNOTE_ITS ---
Date of service: 01/11/24 Time of Service: 10:18 Care Management Progress Note Progress Note Text Progress Note Text: Teo was sitting up on the side of the bed when CM met with him. He informed CM that he is feeling better. He has been able to eat and his abdominal pain is better. Clemente also has pneumonia. He stated that when he removes his nasal oxygen, his oxygen levels drop significantly, he thought perhaps into the 70s or 80s. He has been encouraged to ambulate in the halls and reported that he is not comfortable doing that in a [facility]. CM suggested that he get up and sit in a chair and walk in his room. He explained that he has been doing that as well as doing stretching exercises on his own. Discharge Potential Discharge Needs: PCP F/U Appt Anticipated Barriers to Discharge: None Identified Patient/Family Education Needs: Review discharge instructions, discuss Ask Me Three Transportation: Private vehicle Plan: Anticipate Teo will be discharged home with no new services when medically cleared. He will follow up with his PCP and plan of care and transport with family. CM will follow and continue to support discharge needs. SDOH(Care Management) Screening Will the Patient Participate in the Screening?: Yes Do you worry about having a steady place to live?: no In the past 12 months, have you had to go without electric, gas, oil or water in your home?: no Have you or anyone in your house had to go without enough food to eat?: no Has lack of transportation kept you from medical appointments or from doing things needed for daily living?: no Has anyone in your support network made you feel unsafe for any reason?: no
[2024-01-11] MEDS: POTASSIUM CHLORIDE 20 MEQ/100 ML BAG 25 MEQ IVINF (11:22)
--- NOTE | 2024-01-11 12:21 | W.PM.PROGNOT ---
Date of Service Date of service: 01/11/24 Time of Service: 12:21 Assessment and Plan Assessment and plan (1) Pancreatitis, acute: Start date: 01/06/24 Status: Acute Assessment and plan: Secondary to alcohol abuse, pancreatitis is now resolving with normal lipase he is tolerating his diet. I discontinued his IV narcotics I will leave an order for some oral narcotics but decrease the frequency and encouraged him not to take them as it will cause some constipation. His statement about his left side pain seems to be disproportionate to his physical findings or his clinical examination. Furthermore his normal lipase tells me that the acute pancreatitis has resolved although he is at risk for future pancreatitis given his propensity for alcohol. He needs to refrain from further alcohol use. Qualifiers: Pancreatitis type: alcohol induced Acute pancreatitis complication: no infection or necrosis Qualified Code(s): K85.20 - Alcohol induced acute pancreatitis without necrosis or infection (2) Aspiration pneumonia: Status: Acute Assessment and plan: Pneumonia is gradually resolving is not being helped by the fact that he likes to stay in bed and does not get up to walk around the hospital and prefers to stay in bed instead of sitting up in a chair. I think the ceftriaxone azithromycin combination is not resolving the situation as quickly as I would like. I will switch him to Unasyn but keep him on azithromycin for its anti-inflammatory effect. If his white cell count is not dropping dramatically by tomorrow I will reimage his lungs. Qualifiers: Aspiration pneumonia type: unspecified Laterality: bilateral Lung location: lower lobe of lung Qualified Code(s): J69.0 - Pneumonitis due to inhalation of food and vomit (3) Hypokalemia: Status: Acute Assessment and plan: Recurrent hypokalemia due to poor nutrition. Potassium at 2.9 despite supplementation yesterday. Will be more aggressive with both IV and oral replacement and recheck his electrolytes this afternoon (4) Hypomagnesemia: Start date: 01/06/24 Status: Acute Assessment and plan: d/t pancreatitis and poor intake, improving with repletion continue to monitor (5) Hypoalbuminemia: Status: Acute Assessment and plan: Secondary to poor nutrition due to pancreatitis. Patient has been started on protein supplementation (6) Alcohol abuse: Status: Chronic Assessment and plan: no hx of alcohol withdrawal and CIWA scores have been low. will monitor for acute withdrawal but not currently on any withdrawal protocol. (7) HTN (hypertension): Status: Chronic Qualifiers: Hypertension type: primary hypertension Qualified Code(s): I10 - Essential (primary) hypertension (8) Severe depression: Status: Chronic Assessment and plan: Patient noncompliant with medical therapy and drinks daily possibly self treating. He also has a history of ADHD off therapy. Long-term he should follow-up with PCP for more appropriate medical, lifestyle, and behavioral therapies. no change today. (9) DVT prophylaxis: Status: Acute Assessment and plan: Currently on enoxaparin 40 mg subcutaneously daily Subjective Subjective Interval history since last seen: Teo was seen at lunchtime found to be lying in bed with lights out and she needs closed. I told bonita he needs to get up out of bed otherwise his pneumonia is never going to clear up. He states he was up all morning however according to nursing staff he was not up walking around out of his room. Told bonita if he wants to get better from a pneumonia he needs to ambulate.I told Teo that his pancreatitis is markedly improved he seems to be tolerating his diet with no nausea or vomiting although he still complains he still has pain in his left side. His lipase is down to 27 and his transaminases are normal. He still has an elevated CRP of greater than 25 and although his white cell count has improved and also remains elevated at 18,000. I am going to switch his ceftriaxone to Unasyn but continue his azithromycin. Of asked him to use his I-S and acapella faithfully which she says he is doing and I would like to see him out of bed more frequently up to a chair and not lying in bed Exam Narrative Exam Narrative: Young white male lying in bed who seems to be irritable today complaining of everybody coming in and bothering him. I told him we are just trying to work with getting him better and he needs to be out of bed ambulating and using his respiratory exercises. Lungs anteriorly are clear however posteriorly still has some diminished breath sounds at the bases although I think there is some improvement in the aeration to his bases and no longer some dull and he has no rhonchi or wheezing Heart is regular rate and rhythm Abdomen is obese soft nondistended nontender to palpation he has active bowel sounds Objective Last Vital Signs Temp 36.8 C 01/11/24 11:15 Pulse 106 H 01/11/24 11:15 Resp 17 01/11/24 11:15 BP 153/92 H 01/11/24 11:15 Pulse Ox 92 01/11/24 11:15 Laboratory Results - last 24 hr 01/11/24 06:45 WBC 18.86 H RBC 3.64 L Hgb 13.4 L Hct 38.2 L MCV 105 H MCH 36.8 H MCHC 35.1 RDW 12.6 Plt Count 290 MPV 9.6 Immature Gran % 1.0 Neutrophils % 74.3 Lymphocytes % 8.2 Monocytes % 11.4 Eosinophils % 4.6 Basophils % 0.5 Nucleated RBC % 0.0 Absolute Neutrophils 14.01 H Absolute Lymphocytes 1.55 Absolute Monocytes 2.15 H Absolute Eosinophils 0.87 H Absolute Basophils 0.09 RBC Morphology Normal Sodium 135 L Potassium 2.9 L* Chloride 97 L Carbon Dioxide 30.8 Anion Gap 7.2 BUN 9 Creatinine 0.7 Est GFR (CKD-EPI 2020) 130.32 Glucose 98 Calcium 8.5 Magnesium 1.8 Total Bilirubin 0.45 AST 21 ALT 17 Alkaline Phosphatase 92 C-Reactive Protein > 25.00 H Total Protein 6.3 L Albumin 2.1 L Lipase 27 PAWSS Have you Been Recently Intoxicated or Drunk Within the Last 30 days?: Yes Have you Ever Experienced Previous Episodes of Alcohol Withdrawal?: No Have you ever Experienced Withdrawal Seizures?: No Have you ever Experienced Delirium Tremens(DT)s?: No Have you ever undergone Alcohol Rehabilitation Treatment (i.e, inpt ot outpatient treatment programs)?: No Have you ever Experienced Blackouts?: Yes Have you ever Combined Alcohol with other Downers within the last 90 days?: No Have you ever Combined Alcohol with any other Substance of Abuse during the last 90 days?: Yes Positive Blood Alcohol level on Presentation? [PCS.BAL]: No Evidence of Increased Autonomic Activity (i.e. HR>120, tremor, sweating, agitation, nausea)?: No Result: 4 Time Spent with Patient Time Spent with Patient: 25-34 minutes Time was spent: preparing to see the patient(eg.review tests), ordering medications,tests, procedures, referring, communicating with other health patient care nursing assistant, indepentently interpreting results, counseling the patient and care coordination
[2024-01-11 14:18] LABS: Potassium 3.4 mmol/L (3.5-5.1)
[2024-01-11 17:47] LABS: Ionized Calcium 1.01 mmol/L (1.14-1.35)
[2024-01-11] MEDS: AMPICILLIN/SULBACTAM 3 GM in Normal Saline 100 ML IVPB (22:28)
[2024-01-12] VITALS (7 sets, daily range): BP systolic 124–151; BP diastolic 78–101; PULSE 95–121; RESP 15–20; TEMP 35.8–37.3; O2SAT 90–98
[2024-01-12] MEDS: Pantoprazole 40 MG VIAL IVP (00:02)
[2024-01-12] MEDS: Enoxaparin 40 MG/0.4 ML SYR SC (00:02)
[2024-01-12] MEDS: hydrALAZINE 20 MG/ML VIAL 10 MG IVP ×3 (00:02→12:11)
[2024-01-12] MEDS: Acetaminophen 325 MG TAB PO ×3 (00:21→15:57)
[2024-01-12] MEDS: HYDROmorphone 2 MG TAB PO (01:31)
[2024-01-12] MEDS: AMPICILLIN/SULBACTAM 3 GM in Normal Saline 100 ML IVPB ×3 (04:00→15:48)
[2024-01-12 07:09] LABS: Abs Immature Grans 0.29 10^3/uL (0.0-0.06); Absolute Eosinophil Count 0.89 10^3/uL (0.0-0.7); Absolute Neutrophil Count 10.37 10^3/uL (1.2-6.7); Basophils % 0.8 %; Eosinophils % 5.7 %; HCT 42.7 % (40.0-50.0); HGB 15.2 g/dL (13.5-17.5); Immature Grans % 1.9 %; Lymphocytes % 11.7 %; MCH 36.7 pg (27.0-33.0); MCHC 35.6 % (32.0-36.0); MCV 103 fL (80-95); MPV 9.8 fL (8.0-11.0); Monocytes % 13.1 %; Neutrophils % 66.8 %; Platelet Count 294 10^3/uL (130-400); RBC 4.14 10^6/uL (4.36-5.78); RDW 13.1 % (11.8-14.1); RDW-SD 50.5 fL; WBC 15.53 10^3/uL (4.4-10.8)
[2024-01-12 07:17] LABS: Absolute Basophil Count 0.12 10^3/uL (0.0-0.2); Absolute Lymphocyte Count 1.82 10^3/uL (1.2-3.4); Absolute Monocyte Count 2.03 10^3/uL (0.1-0.8)
[2024-01-12 07:25] LABS: Diff Comment Diff Reviewed; RBC Morphology Normal
[2024-01-12 07:26] LABS: ALT 23 U/L (16-63); AST 37 U/L (15-37); Albumin 2.3 g/dL (3.4-5.0); Alkaline Phosphatase 106 U/L (46-116); Anion Gap 6.8 mmol/L (3-11); BUN 6 mg/dL (7-18); Bilirubin, Total 0.44 mg/dL (0.2-1.0); C-Reactive Protein 18.98 mg/dL (<or=0.5); CO2 30.2 mmol/L (21.0-32.0); CREATININE 0.8 mg/dL (0.70-1.30); Calcium 8.6 mg/dL (8.5-10.1); Chloride 99 mmol/L (98-107); Estimated GFR 125.17 (mL/min/1.73m2); Glucose 93 mg/dL (74-106); Potassium 3.2 mmol/L (3.5-5.1); Sodium 136 mmol/L (136-145); Total Protein 6.9 g/dL (6.4-8.2)
[2024-01-12] MEDS: AZITHROMYCIN 250 MG in Normal Saline 250 ML IVPB (08:47)
[2024-01-12] MEDS: Normal Saline Flush 10 ML SYR IVP ×3 (08:47→15:48)
[2024-01-12] MEDS: Potassium Chloride 10 MEQ CAPCR 30 MEQ PO ×2 (08:48→14:31)
[2024-01-12] MEDS: Magnesium Oxide 400 MG TAB 800 MG PO (08:49)
[2024-01-12] MEDS: amLODIPine 5 MG TAB 10 MG PO (08:50)
[2024-01-12] MEDS: Thiamine 100 MG TAB PO (08:50)
[2024-01-12] MEDS: Lisinopril 5 MG TAB PO (08:51)
[2024-01-12] MEDS: Metoprolol 25 MG TAB PO ×2 (08:51→14:29)
[2024-01-12] MEDS: Folic Acid 1 MG TAB PO (08:51)
[2024-01-12] MEDS: Multivitamin TAB 1 TAB PO (08:51)
[2024-01-12 09:46] LABS: Lab Add On Test DONE; Magnesium 1.7 mg/dL (1.8-2.4)
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
--- NOTE | 2024-01-12 16:38 | NUR.NOTE ---
Patient discharge education reviewed with patient and patient's family member (grandma), both verbalized understanding utilizing the teach back method. Discharge education included but was not limited to: acute pancreatitis, avoiding drinking alcohol as recommended by provider, medication compliance, blood pressure management, pneumonia (encouraged utilizing incentive spirometer), follow up appointments, etc. All questions answered. Midline removed, patient tolerated well. All belongings sent home with patient. Patient denied having further questions or concerns at time of discharge.
--- NOTE | 2024-01-13 11:23 | PDOC.CMDIS ---
Date of service: 01/12/24 Time of Service: 17:00 LACE Index Scoring Tool Questions: Length of Stay (in days): 4 - 6 Was the patient admitted via the E.D.?: Yes E.D. Visits: 1 Answers: Total Score: 8 Risk of Readmission: Low Risk Care Management Discharge Plan Reason for Hospitalization: Pancreatitis Discharge Plan: Teo will be discharged home with no new services. He will follow up with his PCP and plan of care and transport with his fianc?e. Patient/Family Education Needs: Review of discharge instructions, activity, limitations, follow up plan and discuss Ask Me Three SDRI Health Related Social Needs: No Data to Display
[2024-01-14 08:34] LABS: Streptococcus Pneumoniae Ag, U Negative (Negative)
== END 2024-01-12 16:15 | disposition home or self-care (01) | DRG 438 ==
LOC: ER 22:35 → MS 22:48
PROVIDERS: Family Medicine; Internal Medicine; Admitting Provider Family Medicine; Emergency Provider Nurse Practitioner Family; PCP Family Medicine; Visit Provider Family Medicine
DX: K85.20 Alcohol induced acute pancreatitis without necrosis or infection (principal); J69.0 Pneumonitis due to inhalation of food and vomit; N30.00 Acute cystitis without hematuria; N17.9 Acute kidney failure, unspecified; F32.2 Major depressive disorder, single episode, severe without psychotic features; K92.0 Hematemesis; R09.02 Hypoxemia; E83.52 Hypercalcemia; E83.42 Hypomagnesemia; F10.10 Alcohol abuse, uncomplicated; I10 Essential (primary) hypertension; R74.01 Elevation of levels of liver transaminase levels; E88.09 Other disorders of plasma-protein metabolism, not elsewhere classified; E87.6 Hypokalemia; F17.210 Nicotine dependence, cigarettes, uncomplicated; F90.2 Attention-deficit hyperactivity disorder, combined type; K21.9 Gastro-esophageal reflux disease without esophagitis; F41.9 Anxiety disorder, unspecified; Z91.199 Patient's noncompliance with other medical treatment and regimen due to unspecified reason
CPT/HCPCS: 36410; 00123; 36415; 71275; 80048; 80053; 80061; 80076; 80307; 83690; 84145; 85027; 87040; 87449; 93005; 94618; 96361; 96365; 96366; 96367; 96375; 99285; J1650; 71046; 74176; 74177; 76705; 81003; 81015; 82330; 83605; 83735; 83970; 84100; 84132; 84478; 85025; 85610; 86140; 87086; 87899; 93010; 94640; 94667; 94668; 94760; 99223; 99231; 99232; 99238; J0295; J0360; J0456; J0696; J1170; J1885; J1920; J2405; J2470; J3475; J3480; J3490; J7614

== ENCOUNTER 2024-01-28 01:02 | Outpatient (CLI) | payer MEDICAID, SELFPAY ==
--- NOTE | 2024-01-28 09:00 | DI.RAD_ITS ---
Exam(s) XR CHEST 2V PA LATERAL EXAM: XR CHEST 2V PA LATERAL CLINICAL HISTORY: pneumonia J69.0 PNEUMONITIS DUE TO INHALATION OF FOOD AND VOMIT TECHNIQUE: 2D digital imaging was performed. Two views. COMPARISON: CT CT CHEST PE CTA from 01/07/2024 FINDINGS: HEART: Normal size. Aorta: Not dilated. PULMONARY VASCULATURE: Normal. MEDIASTINUM: Unremarkable. LUNGS: Clear. PLEURAL SPACE: No pleural effusion or pneumothorax. BONE:Unremarkable for age. SOFT TISSUES: Unremarkable. IMPRESSION: No acute abnormality. DATA REPOSITORY: RADIATION DOSE DELIVERED:
== END 2024-01-28 01:22 ==
LOC: DI 01:03
PROVIDERS: PCP Family Medicine; Visit Provider Internal Medicine
DX: J69.0 Pneumonitis due to inhalation of food and vomit (principal); K76.0 Fatty (change of) liver, not elsewhere classified
CPT/HCPCS: 71046

== ENCOUNTER 2024-01-28 01:03 | Outpatient (CLI) | payer MEDICAID, SELFPAY ==
--- NOTE | 2024-01-28 09:02 | DI.US_ITS ---
Exam(s) US ABDOMEN EXAM: US ABDOMEN CLINICAL HISTORY: f/u recent pancreatitis K85.20 ALCOHOL INDUCED PANCREATITIS TECHNIQUE: Ultrasound abdomen performed using standard protocol. COMPARISON: CT CT ABDOMEN PELVIS W from 01/08/2024 FINDINGS: LIVER: Mildly enlarged at 17 cm in length. Moderately increased echogenicity consistent with hepatic steatosis. No focal liver lesions are seen. GALLBLADDER: No evidence of cholelithiasis. No evidence of wall thickening. No pericholecystic fluid identified. NEWBERRY'S SIGN: Negative. BILIARY SYSTEM: No intrahepatic or extrahepatic biliary ductal dilation. KIDNEYS: Kidneys are symmetric in size. No evidence of renal calculi. No evidence of hydronephrosis. No renal mass or cyst identified. PANCREAS: Normal where visualized. No fluid collections. SPLEEN: Not enlarged. ABDOMINAL AORTA AND IVC: Visualized portions normal caliber. ASCITES: None seen. IMPRESSION: Enlarged liver with moderate hepatic steatosis. Pancreas appears grossly normal. No surrounding flu id or focal collection. DATA REPOSITORY:
== END 2024-01-28 01:23 ==
LOC: DI 01:03
PROVIDERS: PCP Family Medicine; Visit Provider Family Medicine
DX: K85.20 Alcohol induced acute pancreatitis without necrosis or infection (principal)
CPT/HCPCS: 76700

== ENCOUNTER 2024-01-28 01:56 | Outpatient (CLI) | payer MEDICAID, SELFPAY ==
[2024-01-28 14:47] LABS: Abs Immature Grans 0.13 10^3/uL (0.0-0.06); Absolute Eosinophil Count 0.67 10^3/uL (0.0-0.7); Absolute Lymphocyte Count 2.97 10^3/uL (1.2-3.4); Absolute Monocyte Count 1.31 10^3/uL (0.1-0.8); Absolute Neutrophil Count 11.17 10^3/uL (1.2-6.7); Eosinophils % 4.1 %; Immature Grans % 0.8 %; Lymphocytes % 18.1 %; MCH 34.9 pg (27.0-33.0); MCV 103 fL (80-95); MPV 10.7 fL (8.0-11.0); RBC 4.58 10^6/uL (4.36-5.78); RDW 12.9 % (11.8-14.1); RDW-SD 49.1 fL; WBC 16.42 10^3/uL (4.4-10.8)
[2024-01-28 14:51] LABS: Absolute Basophil Count 0.16 10^3/uL (0.0-0.2)
[2024-01-28 15:13] LABS: Diff Comment PLT Morph Reviewed; Platelet Count 885 10^3/uL (130-400); RBC Morphology Normal
[2024-01-28 15:51] LABS: ALT 47 U/L (16-63); AST 38 U/L (15-37); Albumin 4.1 g/dL (3.4-5.0); Alkaline Phosphatase 105 U/L (46-116); Anion Gap 9.5 mmol/L (3-11); BUN 16 mg/dL (7-18); Bilirubin, Total 0.33 mg/dL (0.2-1.0); CO2 26.5 mmol/L (21.0-32.0); Calcium 11.5 mg/dL (8.5-10.1); Chloride 100 mmol/L (98-107); Estimated GFR 106.45 (mL/min/1.73m2); Glucose 94 mg/dL (74-106); Magnesium 1.5 mg/dL (1.8-2.4); Potassium 4.3 mmol/L (3.5-5.1); Sodium 136 mmol/L (136-145); Total Protein 8.8 g/dL (6.4-8.2)
== END 2024-01-28 01:57 | disposition home or self-care (01) ==
LOC: LBO 01:56
PROVIDERS: PCP Family Medicine; Visit Provider Family Medicine
DX: E87.6 Hypokalemia (principal); J69.0 Pneumonitis due to inhalation of food and vomit; Z00.00 Encounter for general adult medical examination without abnormal findings; E88.09 Other disorders of plasma-protein metabolism, not elsewhere classified
CPT/HCPCS: 36415; 80053; 83735; 85025

== ENCOUNTER 2024-01-30 01:55 | Outpatient (CLI) | payer MEDICAID, SELFPAY ==
--- NOTE | 2024-01-30 09:30 | DI.US_ITS ---
Exam(s) US EXTREMITY VENOUS BI EXAM: US EXTREMITY VENOUS BI CLINICAL HISTORY: thrombocytosis,pain leg,m79.606,d75.839,recent hospitalization,plt 883. TECHNIQUE: Bilateral lower extremity venous ultrasound performed using grayscale, color-flow, and sp ectral Doppler analysis. COMPARISON: No exams were available for comparison FINDINGS: The bilateral common femoral, femoral and popliteal veins demonstrate normal compressibility, augment ation, and color Doppler. The posterior tibial veins are patent. IMPRESSION: Right: Negative for DVT Left: Negative for DVT DATA REPOSITORY:
== END 2024-01-30 02:15 ==
LOC: DI 01:55
PROVIDERS: PCP Family Medicine; Visit Provider Family Medicine
DX: M79.604 Pain in right leg; M79.89 Other specified soft tissue disorders; M79.605 Pain in left leg
CPT/HCPCS: 93970

== ENCOUNTER 2024-02-15 02:26 | Outpatient (CLI) | payer MEDICAID, SELFPAY ==
[2024-02-15 09:44] LABS: Abs Immature Grans 0.06 10^3/uL (0.0-0.06); Absolute Basophil Count 0.15 10^3/uL (0.0-0.2); Absolute Eosinophil Count 0.44 10^3/uL (0.0-0.7); Absolute Lymphocyte Count 3.42 10^3/uL (1.2-3.4); Absolute Monocyte Count 1.36 10^3/uL (0.1-0.8); Absolute Neutrophil Count 7.88 10^3/uL (1.2-6.7); Basophils % 1.1 %; Eosinophils % 3.3 %; HCT 44.8 % (40.0-50.0); HGB 15.5 g/dL (13.5-17.5); Immature Grans % 0.5 %; Lymphocytes % 25.7 %; MCH 33.9 pg (27.0-33.0); MCHC 34.6 % (32.0-36.0); MCV 98 fL (80-95); MPV 11.4 fL (8.0-11.0); Monocytes % 10.2 %; Neutrophils % 59.2 %; Platelet Count 421 10^3/uL (130-400); RBC 4.57 10^6/uL (4.36-5.78); RDW 12.7 % (11.8-14.1); RDW-SD 46.2 fL; WBC 13.31 10^3/uL (4.4-10.8)
== END 2024-02-15 02:27 | disposition home or self-care (01) ==
LOC: LBO 02:26
PROVIDERS: PCP Family Medicine; Visit Provider Family Medicine
DX: D75.839 Thrombocytosis, unspecified (principal)
CPT/HCPCS: 36415; 85025

== ENCOUNTER 2024-09-18 21:55 | Outpatient (REF) | payer SELFPAY | END 2024-09-18 21:56 | disposition home or self-care (01) | LOC: LBN 21:55 | PROVIDERS: PCP Family Medicine; Visit Provider Nurse Practitioner Family | DX: J02.9 Acute pharyngitis, unspecified (principal) | CPT/HCPCS: 87070 ==

== ENCOUNTER 2025-01-29 16:25 | Outpatient (CLI) | payer SELFPAY ==
[2025-01-29 17:18] LABS: ALT 34 U/L (16-63); AST 23 U/L (15-37); Albumin 3.8 g/dL (3.4-5.0); Alkaline Phosphatase 133 U/L (46-116); Anion Gap 10.7 mmol/L (3-11); BUN 9 mg/dL (7-18); Bilirubin, Total 0.7 mg/dL (0.2-1.0); CO2 26.3 mmol/L (21.0-32.0); Calcium 9.5 mg/dL (8.5-10.1); Chloride 104 mmol/L (98-107); Estimated GFR 124.40 (mL/min/1.73m2); Glucose 136 mg/dL (74-106); Potassium 3.5 mmol/L (3.5-5.1); Sodium 141 mmol/L (136-145); Total Protein 7.2 g/dL (6.4-8.2)
[2025-02-03 13:55] LABS: Renin Activity, Plasma 1.5 ng/mL/h
== END 2025-01-29 16:26 | disposition home or self-care (01) ==
LOC: LBO 16:26
PROVIDERS: PCP Family Medicine; Visit Provider Family Medicine
DX: I10 Essential (primary) hypertension (principal); Z00.00 Encounter for general adult medical examination without abnormal findings
CPT/HCPCS: 36415; 80053; 82088; 84244